=== PATIENT | female | born 1950 | race Caucasian/White ===

== ENCOUNTER → 2016-06-06 | Outpatient (CLI) | payer MEDICARE, OTHER ==
--- OUTSIDE RECORDS SUMMARY | 2016-05-31 05:40 | XMS REPORT | Continuity of Care Document ---
Author Author [facility] Organization [facility] Address Unknown Phone Unavailable Care Team Providers Care Senior Naval Parachutist Name Role Phone Pcn Unknown, Unknown PCP Unavailable Source Comments Some departments are not documenting in the electronic medical record. If you do not see the information that you expected, contact Release of Information in the Health Information Management department at [phone] for further assistance in locating additional records.[facility] Active Allergies and Adverse Reactions Allergen Noted Date Severity Reactions Comments Advair Diskus 04/02/2015 High HALLUCINATIONS, SEE Disorentation COMMENTS Ampicillin 04/02/2015 Medium HIVES Blueberry 04/02/2015 Medium HIVES Grass Pollen 04/02/2015 Low SEE COMMENTS Congestion Root Beer Flavor 04/02/2015 Medium HIVES Trees [place] 04/02/2015 Low SEE COMMENTS Congestion [place] Pollen 04/02/2015 Low SEE COMMENTS Congestion Current Medications Prescription Sig. Disp. Refills Start End Date Status Date metFORMIN (GLUCOPHAGE) Take 500 mg by mouth Active 500 mg tablet daily. pravastatin (PRAVACHOL) Take 80 mg by mouth Active 80 mg tablet daily. lisinopril (PRINIVIL; Take 10 mg by mouth Active ZESTRIL) 10 mg tablet daily. cetirizine (ZYRTEC) 10 mg Take 10 mg by mouth Active tablet daily. CALCIUM CARBONATE/VITAMIN Take by mouth daily. Active D3 (CALCIUM 500 + D PO) Cholecalciferol (Vitamin Take by mouth. Active D3) (VITAMIN D-3) 2,000 unit cap denosumab (PROLIA) 60 Inject 60 mg into area(s) Active mg/mL syrg as directed once. Once every 6 months estradiol(+) (VAGIFEM) 10 Insert or Apply 10 mcg to Active mcg vaginal tablet vaginal area twice weekly. Insert one tablet vaginally daily for two weeks; then insert one tablet twice weekly. METHYLPREDNISOLONE Take by mouth. One in Active (MEDROL PO) october-one in January-one in February diphenhydrAMINE Take 25 mg by mouth every Active (BENADRYL) 25 mg capsule 6 hours as needed (up to 8 tablets daily during allergy season). aspirin EC 81 mg tablet Take 81 mg by mouth Active daily. atorvastatin (LIPITOR) 40 Take 40 mg by mouth Active mg tablet daily. Active Problems Problem Noted Date Endometrial cancer (HCC) 07/20/2015 Social History Tobacco Use Types Packs/Day Years Used Date Never Smoker Smokeless Tobacco: Never Used Alcohol Use Drinks/Week oz/Week Comments No Last Filed Vital Signs Vital Sign Reading Time Taken Blood Pressure 137/63 07/19/2015 11:07 AM PERSONAL CARE SERVICE PROVIDER Pulse 77 07/19/2015 11:07 AM PERSONAL CARE SERVICE PROVIDER Temperature 36.8 C (98.2 F) 07/19/2015 11:07 AM PERSONAL CARE SERVICE PROVIDER Respiratory Rate 16 07/19/2015 11:07 AM PERSONAL CARE SERVICE PROVIDER Height 1.562 m (5' 1.5") 07/19/2015 11:07 AM PERSONAL CARE SERVICE PROVIDER Weight 64.683 kg (142 lb 9.6 oz) 07/19/2015 11:07 AM PERSONAL CARE SERVICE PROVIDER Body Mass Index 26.51 07/19/2015 11:07 AM PERSONAL CARE SERVICE PROVIDER Oxygen Saturation 99% 07/19/2015 11:07 AM PERSONAL CARE SERVICE PROVIDER Plan of Care Health Maintenance Due Date Last Done Comments Hepatitis C Screening 1950 Physical (Comprehensive) 1958 Exam Pertussis Vaccine 1962 Tetanus Vaccine 02/10/1968 Cervical Cancer Screening 02/10/1972 Breast Cancer Screening 1991 Colorectal Cancer 2001 Screening Shingles Vaccine 2011 Influenza Vaccine 02/03/2016 Results from Last 3 Months Not on file
[~2016-06-06] MED LIST: ALBU8.5H2; ATOR40TA70 PO; ATR20T; CIPR-225 PO; HYDR-3875 PO; HYDR-3876 PO; LISI10TA; METF-380; METF500T4 PO; NITR-65 PO; PARO10TA21; TAMS0.4C98 PO; ZLP5T PO; [UNRECOGNIZED DRUG - CODE] EXT
--- OUTSIDE RECORDS SUMMARY | 2016-06-06 12:51 | XMS REPORT | Continuity of Care Document ---
Author Author [facility] Organization [facility] Address Unknown Phone Unavailable Care Team Providers Care Hydramatic Mechanic Name Role Phone Pcn Unknown, Unknown PCP Unavailable Source Comments Some departments are not documenting in the electronic medical record. If you do not see the information that you expected, contact Release of Information in the Health Information Management department at [phone] for further assistance in locating additional records.[facility] Active Allergies and Adverse Reactions Allergen Noted Date Severity Reactions Comments Advair Diskus 04/02/2015 High HALLUCINATIONS, SEE Disorentation COMMENTS Ampicillin 04/02/2015 Medium HIVES Blueberry 04/02/2015 Medium HIVES Grass Pollen 04/02/2015 Low SEE COMMENTS Congestion Root Beer Flavor 04/02/2015 Medium HIVES Trees [place] 04/02/2015 Low SEE COMMENTS Congestion [place] Pollen 04/02/2015 Low SEE COMMENTS Congestion Current [...] Taken Blood Pressure 137/63 07/19/2015 11:07 AM GARBAGE MAN Pulse 77 07/19/2015 11:07 AM GARBAGE MAN Temperature 36.8 C (98.2 F) 07/19/2015 11:07 AM GARBAGE MAN Respiratory Rate 16 07/19/2015 11:07 AM GARBAGE MAN Height 1.562 m (5' 1.5") 07/19/2015 11:07 AM GARBAGE MAN Weight 64.683 kg (142 lb 9.6 oz) 07/19/2015 11:07 AM GARBAGE MAN Body Mass Index 26.51 07/19/2015 11:07 AM GARBAGE MAN Oxygen Saturation 99% 07/19/2015 11:07 AM GARBAGE MAN Plan of Care Health Maintenance Due Date Last Done Comments Hepatitis C Screening 1950 Physical (Comprehensive) 1958 Exam Pertussis Vaccine 1962 Tetanus Vaccine 02/10/1968 Cervical Cancer Screening 02/10/1972 Breast Cancer Screening 1991 Colorectal Cancer 2001 Screening Shingles Vaccine 2011 Influenza Vaccine 02/03/2016 Results from Last 3 Months Not on file
== END ==
LOC: PREOP 05-31 05:37
PROVIDERS: ATTEND Urology
DX: Z01.818 Encounter for other preprocedural examination (principal); N20.1 Calculus of ureter

== ENCOUNTER → 2016-06-09 | Outpatient (CLI) | payer MEDICARE, OTHER ==
--- OUTSIDE RECORDS SUMMARY | 2016-06-09 09:20 | XMS REPORT | Continuity of Care Document ---
Author Author [facility] Organization [facility] Address Unknown Phone Unavailable Care Team Providers Care Pourer Buggy Ladle Name Role Phone Pcn Unknown, Unknown PCP Unavailable Source Comments Some departments are not documenting in the electronic medical record. If you do not see the information that you expected, contact Release of Information in the Health Information Management department at [phone] for further assistance in locating additional records.[facility] Active Allergies and Adverse Reactions Allergen Noted Date Severity Reactions Comments Advair Diskus 04/02/2015 High HALLUCINATIONS, SEE Disorentation COMMENTS Ampicillin 04/02/2015 Medium HIVES Blueberry 04/02/2015 Medium HIVES Grass Pollen 04/02/2015 Low SEE COMMENTS Congestion Root Beer Flavor 04/02/2015 Medium HIVES Trees [place] 04/02/2015 Low SEE COMMENTS Congestion [place] Pollen 04/02/2015 Low SEE COMMENTS Congestion Current [...] Taken Blood Pressure 137/63 07/19/2015 11:07 AM PACKING MACHINE CAN FEEDER Pulse 77 07/19/2015 11:07 AM PACKING MACHINE CAN FEEDER Temperature 36.8 C (98.2 F) 07/19/2015 11:07 AM PACKING MACHINE CAN FEEDER Respiratory Rate 16 07/19/2015 11:07 AM PACKING MACHINE CAN FEEDER Height 1.562 m (5' 1.5") 07/19/2015 11:07 AM PACKING MACHINE CAN FEEDER Weight 64.683 kg (142 lb 9.6 oz) 07/19/2015 11:07 AM PACKING MACHINE CAN FEEDER Body Mass Index 26.51 07/19/2015 11:07 AM PACKING MACHINE CAN FEEDER Oxygen Saturation 99% 07/19/2015 11:07 AM PACKING MACHINE CAN FEEDER Plan of Care Health Maintenance Due Date Last Done Comments Hepatitis C Screening 1950 Physical (Comprehensive) 1958 Exam Pertussis Vaccine 1962 Tetanus Vaccine 02/10/1968 Cervical Cancer Screening 02/10/1972 Breast Cancer Screening 1991 Colorectal Cancer 2001 Screening Shingles Vaccine 2011 Influenza Vaccine 02/03/2016 Results from Last 3 Months Not on file
--- NOTE | 2016-06-09 14:43 | Diagnostic Imaging Report ---
KUB. COMPARISON: 05/23/2016. FINDINGS: There is a left ureteric stent in place. Surgical clips are seen in the pelvis bilaterally and in the upper right abdomen. There are stone fragments seen in the midureter along the stent around L5 level. This involves a length of about 3.5 cm that has stone fragments. There are also stones in the lower pole of the left kidney up to 9 mm. Other calcifications in the pelvis are likely phleboliths. No definite right kidney calcifications. IMPRESSION: Left kidney stones and stone fragments in the mid left ureter adjacent to the ureteric stent. Dictated by: Dictated on workstation # [id number]
== END ==
LOC: RAD 09:17
PROVIDERS: ATTEND Urology
DX: N20.1 Calculus of ureter (principal); Z98.890 Other specified postprocedural states
CPT/HCPCS: 74000

== ENCOUNTER 2016-06-16 05:37 | Outpatient (CLI) | payer MEDICARE, OTHER ==
[~2016-06-16] VITALS: Ht 154.9 cm; Wt 59.9 kg
[~2016-06-16 05:37] MED LIST changes: -CIPR-225 PO; -HYDR-3876 PO
--- OUTSIDE RECORDS SUMMARY | 2016-06-16 05:39 | XMS REPORT | Continuity of Care Document ---
Author Author [facility] Organization [facility] Address Unknown Phone Unavailable Care Team Providers Care Life Skills Instructor Name Role Phone Pcn Unknown, Unknown PCP Unavailable Source Comments Some departments are not documenting in the electronic medical record. If you do not see the information that you expected, contact Release of Information in the Health Information Management department at [phone] for further assistance in locating additional records.[facility] Active Allergies and Adverse Reactions Allergen Noted Date Severity Reactions Comments Advair Diskus 04/02/2015 High HALLUCINATIONS, SEE Disorentation COMMENTS Ampicillin 04/02/2015 Medium HIVES Blueberry 04/02/2015 Medium HIVES Grass Pollen 04/02/2015 Low SEE COMMENTS Congestion Root Beer Flavor 04/02/2015 Medium HIVES Trees [place] 04/02/2015 Low SEE COMMENTS Congestion [place] Pollen 04/02/2015 Low SEE COMMENTS Congestion Current [...] Taken Blood Pressure 137/63 07/19/2015 11:07 AM TOY ELECTRIC TRAIN REPAIRER Pulse 77 07/19/2015 11:07 AM TOY ELECTRIC TRAIN REPAIRER Temperature 36.8 C (98.2 F) 07/19/2015 11:07 AM TOY ELECTRIC TRAIN REPAIRER Respiratory Rate 16 07/19/2015 11:07 AM TOY ELECTRIC TRAIN REPAIRER Height 1.562 m (5' 1.5") 07/19/2015 11:07 AM TOY ELECTRIC TRAIN REPAIRER Weight 64.683 kg (142 lb 9.6 oz) 07/19/2015 11:07 AM TOY ELECTRIC TRAIN REPAIRER Body Mass Index 26.51 07/19/2015 11:07 AM TOY ELECTRIC TRAIN REPAIRER Oxygen Saturation 99% 07/19/2015 11:07 AM TOY ELECTRIC TRAIN REPAIRER Plan of Care Health Maintenance Due Date Last Done Comments Hepatitis C Screening 1950 Physical (Comprehensive) 1958 Exam Pertussis Vaccine 1962 Tetanus Vaccine 02/10/1968 Cervical Cancer Screening 02/10/1972 Breast Cancer Screening 1991 Colorectal Cancer 2001 Screening Shingles Vaccine 2011 Influenza Vaccine 02/03/2016 Results from Last 3 Months Not on file
[2016-06-16] MEDS ORDERED: CIPR-225 PO (10:37)
== END 2016-06-16 10:41 ==
LOC: PREOP 05:37
PROVIDERS: ATTEND Urology
DX: Z01.818 Encounter for other preprocedural examination (principal); N20.1 Calculus of ureter

== ENCOUNTER 2016-06-20 08:49 | Day surgery (SDC) | payer MEDICARE, OTHER ==
[~2016-06-20] VITALS: Ht 154.9 cm; Wt 59.9 kg
[~2016-06-20 08:49] MED LIST changes: +CIPR-225 PO
--- OUTSIDE RECORDS SUMMARY | 2016-06-20 08:52 | XMS REPORT | Continuity of Care Document ---
Author Author [facility] Organization [facility] Address Unknown Phone Unavailable Care Team Providers Care Transfer Professor Name Role Phone Pcn Unknown, Unknown PCP Unavailable Source Comments Some departments are not documenting in the electronic medical record. If you do not see the information that you expected, contact Release of Information in the Health Information Management department at [phone] for further assistance in locating additional records.[facility] Active Allergies and Adverse Reactions Allergen Noted Date Severity Reactions Comments Advair Diskus 04/02/2015 High HALLUCINATIONS, SEE Disorentation COMMENTS Ampicillin 04/02/2015 Medium HIVES Blueberry 04/02/2015 Medium HIVES Grass Pollen 04/02/2015 Low SEE COMMENTS Congestion Root Beer Flavor 04/02/2015 Medium HIVES Trees [place] 04/02/2015 Low SEE COMMENTS Congestion [place] Pollen 04/02/2015 Low SEE COMMENTS Congestion Current [...] Taken Blood Pressure 137/63 07/19/2015 11:07 AM RESIDENTIAL REAL ESTATE APPRAISER Pulse 77 07/19/2015 11:07 AM RESIDENTIAL REAL ESTATE APPRAISER Temperature 36.8 C (98.2 F) 07/19/2015 11:07 AM RESIDENTIAL REAL ESTATE APPRAISER Respiratory Rate 16 07/19/2015 11:07 AM RESIDENTIAL REAL ESTATE APPRAISER Height 1.562 m (5' 1.5") 07/19/2015 11:07 AM RESIDENTIAL REAL ESTATE APPRAISER Weight 64.683 kg (142 lb 9.6 oz) 07/19/2015 11:07 AM RESIDENTIAL REAL ESTATE APPRAISER Body Mass Index 26.51 07/19/2015 11:07 AM RESIDENTIAL REAL ESTATE APPRAISER Oxygen Saturation 99% 07/19/2015 11:07 AM RESIDENTIAL REAL ESTATE APPRAISER Plan of Care Health Maintenance Due Date Last Done Comments Hepatitis C Screening 1950 Physical (Comprehensive) 1958 Exam Pertussis Vaccine 1962 Tetanus Vaccine 02/10/1968 Cervical Cancer Screening 02/10/1972 Breast Cancer Screening 1991 Colorectal Cancer 2001 Screening Shingles Vaccine 2011 Influenza Vaccine 02/03/2016 Results from Last 3 Months Not on file
--- OUTSIDE RECORDS SUMMARY | 2016-06-20 08:52 | XMS REPORT | Continuity of Care Document ---
Author Author [facility] Organization [facility] Address Unknown Phone Unavailable Care Team Providers Care Spring Repairer Helper Hand Name Role Phone Pcn Unknown, Unknown PCP Unavailable Source Comments Some departments are not documenting in the electronic medical record. If you do not see the information that you expected, contact Release of Information in the Health Information Management department at [phone] for further assistance in locating additional records.[facility] Active Allergies and Adverse Reactions Allergen Noted Date Severity Reactions Comments Advair Diskus 04/02/2015 High HALLUCINATIONS, SEE Disorentation COMMENTS Ampicillin 04/02/2015 Medium HIVES Blueberry 04/02/2015 Medium HIVES Grass Pollen 04/02/2015 Low SEE COMMENTS Congestion Root Beer Flavor 04/02/2015 Medium HIVES Trees [place] 04/02/2015 Low SEE COMMENTS Congestion [place] Pollen 04/02/2015 Low SEE COMMENTS Congestion Current [...] Taken Blood Pressure 137/63 07/19/2015 11:07 AM CAREER AGENT Pulse 77 07/19/2015 11:07 AM CAREER AGENT Temperature 36.8 C (98.2 F) 07/19/2015 11:07 AM CAREER AGENT Respiratory Rate 16 07/19/2015 11:07 AM CAREER AGENT Height 1.562 m (5' 1.5") 07/19/2015 11:07 AM CAREER AGENT Weight 64.683 kg (142 lb 9.6 oz) 07/19/2015 11:07 AM CAREER AGENT Body Mass Index 26.51 07/19/2015 11:07 AM CAREER AGENT Oxygen Saturation 99% 07/19/2015 11:07 AM CAREER AGENT Plan of Care Health Maintenance Due Date Last Done Comments Hepatitis C Screening 1950 Physical (Comprehensive) 1958 Exam Pertussis Vaccine 1962 Tetanus Vaccine 02/10/1968 Cervical Cancer Screening 02/10/1972 Breast Cancer Screening 1991 Colorectal Cancer 2001 Screening Shingles Vaccine 2011 Influenza Vaccine 02/03/2016 Results from Last 3 Months Not on file
[2016-06-20 08:55] VITALS: BP 115/74
--- NOTE | 2016-06-20 09:27 | Progress Note-Pre Operative ---
Pre-Operative Progress Note H&P Reviewed The H&P was reviewed, patient examined and no changes noted. Date H&P Reviewed: Jun 20, 2016 Time H&P Reviewed: 09:26 Pre-Operative Diagnosis: Lt renal stones ALYCIA HOWARD MD Jun 20, 2016 9:26 am
[2016-06-20] MEDS ORDERED: LACTATED RINGERS 1,000 ML IV PRN (09:42)
[2016-06-20] MEDS ORDERED: ONDANSETRON 4 MG/2 ML (SDV) Z0FRAN IV ONE (09:45)
[2016-06-20] MEDS ORDERED: SCOPOLAMINE 1.5 MG (TRANSDERM-SCOP) PATCH TOP ONE (09:45)
[2016-06-20] MEDS ORDERED: FAMOTIDINE 20MG/2ML IV (PEPCID) IV ONE (09:45)
--- NOTE | 2016-06-20 09:50 | Diagnostic Imaging Report ---
EXAMINATION: KUB. COMPARISON: 06/09/2016. INDICATION: Left sided stones. FINDINGS: There has been interval passage of some stone fragments along the mid ureter at the L5 level with the remaining stone fragment measuring 9 mm. There are multiple stone fragments seen in the mid and lower pole of the left kidney measuring up to 5 mm in size. The ureteric stent on the left appears in good position. No definite right-sided stone. Pelvic calcifications are likely phleboliths. Surgical clips are noted bilaterally. Prominent vascular calcifications are also seen in the pelvis. There are surgical clips in the upper right abdomen. There is a moderate amount of fecal material seen. IMPRESSION: There are stones in the lower pole of the left kidney and a 9 mm stone along the left ureteric stent at the L5 level. Dictated by: Dictated on workstation # [id number]
[2016-06-20] MEDS ORDERED: CATHETER FLUSH 10 ML SYR IV PRN (10:00)
[2016-06-20] MEDS ORDERED: LEVOFLOXACIN 250 MG/D5W 50 ML (PRE-MIX) IV ONE (10:00)
[2016-06-20] MEDS ORDERED: FUROSEMIDE 40 MG/4 ML INJ (LASIX) ONE (10:15)
[2016-06-20] MEDS ORDERED: LACTATED RINGERS 1,000 ML IV ONE (10:15)
[2016-06-20] MEDS ORDERED: proPOfol 200 MG/20 ML (DIPRIVAN) VIAL IV ONE (10:15)
[2016-06-20] MEDS ORDERED: KETOROLAC 30 MG/ML VIAL ONE (10:15)
[2016-06-20] MEDS ORDERED: ONDANSETRON 4 MG/2 ML (SDV) Z0FRAN ONE (10:15)
[2016-06-20] MEDS ORDERED: LIDOCAINE PF 2% 10 ML (XYLOCAINE) AMP ONE (10:15)
[2016-06-20] MEDS ORDERED: SEVOFLURANE (ULTANE) 15 ML INHAL SOLN ONE (10:15)
[2016-06-20] MEDS ORDERED: fentaNYL INJECTION 100 MCG/2 ML AMP ONE (10:16)
[2016-06-20] MEDS ORDERED: MIDAZOLAM 2 MG/2 ML (VERSED) VIAL ONE (10:16)
--- NOTE | 2016-06-20 10:38 | Progress Note-Post Operative ---
Post-Operative Progess Note Pre-Operative Diagnosis Lt renal stones Post-Operative Diagnosis same Post-Op Procedure Note Date of Procedure: Jun 20, 2016 Name of Procedure: Lt ESWL and cysto with DC stent Anesthesia Type general ANITAALYCIA Zuniga MD Jun 20, 2016 10:38 am
--- NOTE | 2016-06-20 10:39 | Discharge Inst-Urology ---
Discharge Inst-Urology Discharge Medications New, Converted, or Re-newed RX: RX on Chart Patient Instructions/Follow Up Plan Please make appointment to been seen in office in 3 weeks. KUB prior to it KUB on way home Post ESWL instructions Increase oral fluids for 48 hours and then as needed. Diet and Activity as tolerated. If questions or concerns contact your physician Or seek help at emergency department. ALYCIA HOWARD MD Jun 20, 2016 10:39 am
[2016-06-20] MEDS ORDERED: morphine INJ 10 MG/ML 1ML (SYR OR VIAL) IV PRN (11:15)
[2016-06-20] MEDS ORDERED: fentaNYL INJECTION 250 MCG/5 ML AMP IV PRN (11:15)
[2016-06-20] MEDS ORDERED: PROMETHAZINE INJ 25 MG/ML (PHENERGAN) AMP IV PRN (11:15)
[2016-06-20] MEDS ORDERED: ONDANSETRON 4 MG/2 ML (SDV) Z0FRAN IV PRN (11:15)
[2016-06-20 12:00] VITALS: BP 117/66
[2016-06-20 12:30] VITALS: BP 120/63
[2016-06-20] MEDS ORDERED: NITR-65 PO (12:55)
[2016-06-20] MEDS ORDERED: HYDR-3876 PO (12:55)
[2016-06-20] MEDS ORDERED: TAMS0.4C98 PO (12:55)
[2016-06-20 13:00] VITALS: BP 117/59
--- NOTE | 2016-06-20 13:06 | OPERATIVE REPORT ---
PROCEDURE PHYSICIAN: ALYCIA HOWARD DATE OF PROCEDURE: 06/20/2016 PREOPERATIVE: Left renal stone. POSTOPERATIVE DIAGNOSIS: Left renal stone. OPERATION: Left ESWL with cystoscopy and removal of left double J stent. SURGEON: Ruthy ANESTHESIA: General. COMPLICATIONS: None. PROCEDURE: With the patient in supine under satisfactory general anesthesia on the ESWL table, we localized first the group of stones superiorly. Delivered 1250 shocks at KV of 5 with complete disappearance of the fragments. Similarly, the lower fragments were dealt and same amount and same results. During the procedure, the patient was put in a semi-frog position. The genitalia were prepped and draped in usual sterile fashion. Flexible cystoscope was introduced in the bladder. The distal end of the stent was visualized, grasped with grasping forceps and removed. The patient received 40 mg of Lasix and 30 mg of Toradol IV at the end of the procedure. She tolerated the procedure and anesthesia well and was sent to recovery room in stable condition. Job ID: [id number] Dictated Date: 06/20/2016 10:51:45 Machine Heel Seat Laster Date: 06/20/2016 13:02:29 / susu
--- NOTE | 2016-06-20 13:09 | Diagnostic Imaging Report ---
KUB. INDICATION: Post lithotripsy. COMPARISON: 06/20/2016. Preoperative radiographs. FINDINGS: There is interval removal of a left ureteric stent. Again seen are multiple stone fragments in the left kidney up to 8 mm in size. There are stone fragments noted within the distal 2 cm of the left ureter up to 1 mm in size. The previously seen left ureteric stone at L5 level is not visualized. Surgical clips in the pelvis and in the upper right abdomen again seen. Moderate amount of fecal matter in the colon mostly on the right side noted. IMPRESSION: 1. Tiny stone fragments up to 1 mm in size are seen within the distal 2 cm of the left ureter. 2. Multiple stones and stone fragments in the left kidney up to 8 mm in size. Dictated by: Dictated on workstation # [id number]
[2016-06-20 13:30] VITALS: BP 117/59
== END 2016-06-20 13:30 | disposition home or self-care (01) ==
LOC: SDC 08:49
PROVIDERS: ATTEND Urology
DX: N20.0 Calculus of kidney (principal); E11.9 Type 2 diabetes mellitus without complications; E78.00 Pure hypercholesterolemia, unspecified; Z11.2 Encounter for screening for other bacterial diseases
CPT/HCPCS: 74000; 82962; 87081

== ENCOUNTER → 2016-07-10 | Outpatient (CLI) | payer MEDICARE, OTHER ==
[~2016-07-10] MED LIST changes: +HYDR-3876 PO
--- OUTSIDE RECORDS SUMMARY | 2016-07-10 11:06 | XMS REPORT | Continuity of Care Document ---
Author Author [facility] Organization [facility] Address Unknown Phone Unavailable Care Team Providers Care Medical Office Receptionist Name Role Phone Pcn Unknown, Unknown PCP Unavailable Source Comments Some departments are not documenting in the electronic medical record. If you do not see the information that you expected, contact Release of Information in the Health Information Management department at [phone] for further assistance in locating additional records.[facility] Active Allergies and Adverse Reactions Allergen Noted Date Severity Reactions Comments Advair Diskus 04/02/2015 High HALLUCINATIONS, SEE Disorentation COMMENTS Ampicillin 04/02/2015 Medium HIVES Blueberry 04/02/2015 Medium HIVES Grass Pollen 04/02/2015 Low SEE COMMENTS Congestion Root Beer Flavor 04/02/2015 Medium HIVES Trees [place] 04/02/2015 Low SEE COMMENTS Congestion [place] Pollen 04/02/2015 Low SEE COMMENTS Congestion Current [...] Taken Blood Pressure 137/63 07/19/2015 11:07 AM LEAD TRAINER Pulse 77 07/19/2015 11:07 AM LEAD TRAINER Temperature 36.8 C (98.2 F) 07/19/2015 11:07 AM LEAD TRAINER Respiratory Rate 16 07/19/2015 11:07 AM LEAD TRAINER Height 1.562 m (5' 1.5") 07/19/2015 11:07 AM LEAD TRAINER Weight 64.683 kg (142 lb 9.6 oz) 07/19/2015 11:07 AM LEAD TRAINER Body Mass Index 26.51 07/19/2015 11:07 AM LEAD TRAINER Oxygen Saturation 99% 07/19/2015 11:07 AM LEAD TRAINER Plan of Care Health Maintenance Due Date Last Done Comments Hepatitis C Screening 1950 Physical (Comprehensive) 1958 Exam Pertussis Vaccine 1962 Tetanus Vaccine 02/10/1968 Cervical Cancer Screening 02/10/1972 Breast Cancer Screening 1991 Colorectal Cancer 2001 Screening Shingles Vaccine 2011 Influenza Vaccine 02/03/2016 Results from Last 3 Months Not on file
--- NOTE | 2016-07-10 11:26 | Diagnostic Imaging Report ---
INDICATION: Nephrolithiasis. EXAMINATION: KUB at 11:24 AM. FINDINGS: There are surgical sivakumar lining the pelvis and in the right upper quadrant of the abdomen. There is stool in the colon. There are no radiopaque calculi seen in either kidney. IMPRESSION: There are no calculi seen in the kidneys. Dictated by: Dictated on workstation # [id number]
== END ==
LOC: RAD 11:00
PROVIDERS: ATTEND Urology
DX: N20.0 Calculus of kidney (principal); Z98.890 Other specified postprocedural states
CPT/HCPCS: 74000

== ENCOUNTER → 2016-08-29 | Outpatient (CLI) | payer MEDICARE, OTHER ==
[~2016-08-29] MED LIST changes: +DENOSUMAB 60 MG/1 ML (PROLIA) CANCER CTR SQ SCH
== END ==
LOC: FS 08-28 15:24
PROVIDERS: ATTEND Internal Medicine Hematology & Oncology
DX: Z08 Encounter for follow-up examination after completed treatment for malignant neoplasm (principal); Z85.41 Personal history of malignant neoplasm of cervix uteri; M81.0 Age-related osteoporosis without current pathological fracture; E11.9 Type 2 diabetes mellitus without complications; I10 Essential (primary) hypertension; E78.5 Hyperlipidemia, unspecified; Z79.899 Other long term (current) drug therapy
CPT/HCPCS: 96372; 99213

== ENCOUNTER 2017-03-02 11:09 | Outpatient (RCR) | payer MEDICARE, OTHER ==
[2017-03-02] MEDS ORDERED: DENOSUMAB 60 MG/1 ML (PROLIA) CANCER CTR SQ SCH (11:30)
== END 2017-03-03 | disposition home or self-care (01) ==
LOC: ONC 11:09
PROVIDERS: ATTEND Internal Medicine Hematology & Oncology
DX: M81.0 Age-related osteoporosis without current pathological fracture (principal); Z08 Encounter for follow-up examination after completed treatment for malignant neoplasm; Z85.41 Personal history of malignant neoplasm of cervix uteri; E11.9 Type 2 diabetes mellitus without complications; I10 Essential (primary) hypertension; E78.5 Hyperlipidemia, unspecified; Z79.899 Other long term (current) drug therapy
CPT/HCPCS: 96372

== ENCOUNTER → 2017-03-02 | Outpatient (CLI) | payer MEDICARE, OTHER ==
[~2017-03-02] MED LIST changes: -DENOSUMAB 60 MG/1 ML (PROLIA) CANCER CTR SQ SCH
== END ==
LOC: RAD 10:15
PROVIDERS: ATTEND Obstetrics & Gynecology
DX: Z12.31 Encounter for screening mammogram for malignant neoplasm of breast (principal)
CPT/HCPCS: 77067

== ENCOUNTER → 2017-09-13 | Outpatient (CLI) | payer MEDICARE, OTHER ==
--- NOTE | 2017-09-13 09:50 | Diagnostic Imaging Report ---
Indication: Postmenopausal. Comparison: Made with prior study from 02/11/2015. Findings: Bone mineral analysis of the lumbar spine and both hips was performed. The bone mineral density of the lumbar spine L2-L4 is 0.862 with a T score of -2.8. This compares with prior measurements of 0.810 and -3.2. The bone mineral density of the left femoral neck is 0.781 with a T score of -1.8. This compares with 0.824 and -1.5. The bone mineral density of the right femoral neck is 0.801 with a T score of -1.7. This compares with 0.838 and -1.4. 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 Dictated by: Dictated on workstation # [id number]
== END ==
LOC: RAD 08:45
PROVIDERS: ATTEND Internal Medicine Hematology & Oncology
DX: M81.0 Age-related osteoporosis without current pathological fracture (principal); M85.851 Other specified disorders of bone density and structure, right thigh; M85.852 Other specified disorders of bone density and structure, left thigh; Z78.0 Asymptomatic menopausal state
CPT/HCPCS: 77080

== ENCOUNTER 2018-03-01 10:06 | Outpatient (RCR) | payer MEDICARE, OTHER ==
[~2018-03-01 10:06] MED LIST changes: +METF-397 PO; -METF500T4 PO
[2018-03-01] MEDS ORDERED: DENOSUMAB 60 MG/1 ML (PROLIA) CANCER CTR SQ SCH (10:14)
== END 2018-03-03 | disposition home or self-care (01) ==
LOC: ONC 10:06
PROVIDERS: ATTEND Internal Medicine Hematology & Oncology
DX: Z08 Encounter for follow-up examination after completed treatment for malignant neoplasm (principal); Z85.41 Personal history of malignant neoplasm of cervix uteri; M81.0 Age-related osteoporosis without current pathological fracture; Z92.3 Personal history of irradiation; Z92.21 Personal history of antineoplastic chemotherapy; N93.8 Other specified abnormal uterine and vaginal bleeding; K62.5 Hemorrhage of anus and rectum; N18.3 Chronic kidney disease, stage 3 (moderate); Z87.442 Personal history of urinary calculi; Z79.899 Other long term (current) drug therapy
CPT/HCPCS: 96372

== ENCOUNTER → 2018-04-16 | Outpatient (CLI) | payer MEDICARE, OTHER ==
--- NOTE | 2018-04-16 14:13 | Diagnostic Imaging Report ---
INDICATION: Routine screening. COMPARISON: 03/02/2017 and 02/21/2016. TECHNIQUE: 2D and 3D bilateral screening mammography was performed with CAD. FINDINGS: Both breasts are heterogeneously dense, limiting the sensitivity of mammography. The parenchymal pattern is stable. No mass or malignant appearing microcalcifications are seen. The axillae are unremarkable. IMPRESSION: No mammographic features suspicious for malignancy are identified. ACR BI-RADS Category 1: Negative. Result letter will be mailed to the patient. Note: At least 10% of breast cancer is not imaged by mammography. Dictated by: Dictated on workstation # [id number]
== END ==
LOC: RAD 10:45
PROVIDERS: ATTEND Obstetrics & Gynecology
DX: Z12.31 Encounter for screening mammogram for malignant neoplasm of breast (principal)
CPT/HCPCS: 77067

== ENCOUNTER → 2018-09-03 | Outpatient (CLI) | payer MEDICARE, OTHER ==
[~2018-09-03] MED LIST changes: +DENOSUMAB 60 MG/1 ML (PROLIA) CANCER CTR SQ SCH
== END ==
LOC: EDSTATUS 03-04 08:53 → ONC 08:54
PROVIDERS: ATTEND Internal Medicine Hematology & Oncology
DX: Z08 Encounter for follow-up examination after completed treatment for malignant neoplasm (principal); Z85.41 Personal history of malignant neoplasm of cervix uteri; M81.0 Age-related osteoporosis without current pathological fracture; N93.8 Other specified abnormal uterine and vaginal bleeding; K62.5 Hemorrhage of anus and rectum; N18.3 Chronic kidney disease, stage 3 (moderate); Z87.442 Personal history of urinary calculi; Z79.899 Other long term (current) drug therapy; Z92.21 Personal history of antineoplastic chemotherapy; Z92.3 Personal history of irradiation
CPT/HCPCS: 96372

== ENCOUNTER → 2019-03-11 | Outpatient (CLI) | payer MEDICARE, OTHER | LOC: ONC 10:33 | PROVIDERS: ATTEND Internal Medicine Hematology & Oncology | DX: C54.1 Malignant neoplasm of endometrium (principal); M81.0 Age-related osteoporosis without current pathological fracture | CPT/HCPCS: 96372 ==

== ENCOUNTER → 2019-04-18 | Outpatient (CLI) | payer MEDICARE, OTHER ==
[~2019-04-18] MED LIST changes: -DENOSUMAB 60 MG/1 ML (PROLIA) CANCER CTR SQ SCH
--- NOTE | 2019-04-18 10:39 | Diagnostic Imaging Report ---
INDICATION: Routine screening. Comparison is made with prior mammogram from 04/16/2018 and 03/02/2017. 2-D and 3-D bilateral screening mammography was performed with CAD. Scattered fibroglandular densities are identified bilaterally. The parenchymal pattern is stable. No mass or malignant appearing microcalcifications are seen. Axillae are unremarkable. IMPRESSION: BI-RADS Category 1 No mammographic features suspicious for malignancy are identified. ACR BI-RADS Category 1: Negative. Result letter will be mailed to the patient. Note: At least 10% of breast cancer is not imaged by mammography. Dictated by: Dictated on workstation # [id number]
== END ==
LOC: RAD 08:53
PROVIDERS: ATTEND Obstetrics & Gynecology
DX: Z12.31 Encounter for screening mammogram for malignant neoplasm of breast (principal)
CPT/HCPCS: 77067

== ENCOUNTER → 2019-10-14 | Outpatient (CLI) | payer MEDICARE, OTHER ==
[~2019-10-14] MED LIST changes: -TAMS0.4C98 PO; +TMSL.4C PO
--- NOTE | 2019-10-16 10:53 | Diagnostic Imaging Report ---
INDICATION: 69-year-old postmenopausal female. COMPARISON: 09/13/2017. FINDINGS: AP Spine L1-L4: [BMD (g/cm2): 0.896] [T-Score: -2.5] [Z-Score: -0.8] [BMD Previous: 0.862] [BMD % Change: 3.9] LT Hip Neck: [BMD (g/cm2): 0.801] [T-Score: -1.7] [Z-Score: 0.0] LT Hip Total: [BMD (g/cm2):0.934] [T-Score:-0.6] [Z-Score: 0.9] [BMD Previous: 0.925] [BMD % Change: 1.0] RT Hip Neck: [BMD (g/cm2):0.823] [T-Score:-1.5] [Z-Score:0.2] RT Hip Total: [BMD (g/cm2):0.972] [T-score:-0.3] [Z-Score:1.2] [BMD Previous:0.967] [BMD % Change:0.5] *Indicates significant change from prior examination based on 95% confidence level. World Health Organization criteria for BMD interpretation classify patients as Normal (T-score at or above -1.0), Osteopenic (T-score between -1.0 and -2.5) or Osteoporotic (T-score at or below -2.5). LIMITATIONS AND MODIFICATION: None. IMPRESSION: 1. Osteoporosis. 2. No significant change in bone mineral density since prior examination. 3. See below National Osteoporosis Foundation guidelines on when to potentially initiate pharmacologic therapy. Based on the National Osteoporosis Foundation Guidelines, pharmacologic treatment should be initiated in any of the following, unless clinical conditions suggest otherwise: * Any patient with prior fragility fracture of the hip or vertebrae. A spine fracture indicates 5X risk for subsequent spine fracture and 2X risk for subsequent hip fracture. * Osteoporosis (T-score <-2.5). * Postmenopausal women and men age 50 and older with low bone mass/osteopenia (T-score between -1.0 and -2.5) by DXA and 10-year major osteoporotic fracture greater than 20% or a 10-year probability of hip fracture greater than 3%. These fracture risks are supplied above in the FRAX score, if applicable. * Clinician judgement and/or patient preferences may indicate treatment for people with 10-year fracture probabilities above or below these levels. Dictated by: Dictated on workstation # [id number]
== END ==
LOC: RAD 11:19
PROVIDERS: ATTEND Internal Medicine Hematology & Oncology
DX: M81.0 Age-related osteoporosis without current pathological fracture (principal); Z78.0 Asymptomatic menopausal state; Z85.42 Personal history of malignant neoplasm of other parts of uterus
CPT/HCPCS: 77080

== ENCOUNTER → 2019-11-03 | Outpatient (CLI) | payer MEDICARE, OTHER ==
[2019-11-03 10:08] LABS: BILIRUBIN,TOTAL 0.3 MG/DL (0.1-1.0); CALCIUM 9.8 MG/DL (8.5-10.1); CREATININE SERUM 1.25 MG/DL (0.60-1.30); POTASSIUM 3.8 MMOL/L (3.6-5.0)
[2019-11-03 10:09] LABS: TOTAL PROTEIN 7.3 GM/DL (6.4-8.2)
== END ==
LOC: LAB FS 08:34
PROVIDERS: ATTEND Family Medicine
DX: E11.9 Type 2 diabetes mellitus without complications (principal)
CPT/HCPCS: 80053; 80061; 83036

== ENCOUNTER → 2019-11-03 | Outpatient (CLI) | payer MEDICARE, OTHER ==
[2019-11-03 09:33] LABS: HEMATOCRIT 39 % (35-52); HEMOGLOBIN 12.3 G/DL (11.5-16.0); MEAN CORPUSCULAR HEMOGLOBIN 30 PG (25-34); MEAN CORPUSCULAR HGB CONC 32 G/DL (32-36); MEAN CORPUSCULAR VOLUME 93 FL (80-99); MEAN PLATELET VOLUME 12.7 FL (7.4-10.4); PLATELET COUNT 196 10^3/uL (130-400); RED CELL DISTRIBUTION WIDTH 14.4 % (10.0-14.5); WHITE BLOOD COUNT 7.7 10^3/uL (4.3-11.0)
[2019-11-03 09:34] LABS: BASOPHILS # (AUTO) 0.1 10^3/uL (0.0-0.1); BASOPHILS % (AUTO) 1 % (0-10); EOSINOPHILS # (AUTO) 0.7 10^3/uL (0.0-0.3); EOSINOPHILS % (AUTO) 9 % (0-10); LYMPHOCYTES # (AUTO) 1.7 X 10^3 (1.0-4.0); LYMPHOCYTES % (AUTO) 22 % (12-44); MONOCYTES # (AUTO) 0.7 X 10^3 (0.0-1.0); MONOCYTES % (AUTO) 9 % (0-12); NEUTROPHILS # (AUTO) 4.5 X 10^3 (1.8-7.8); NEUTROPHILS % (AUTO) 59 % (42-75)
[2019-11-03 10:09] LABS: POTASSIUM 3.8 MMOL/L (3.6-5.0)
[2019-11-03 10:10] LABS: BILIRUBIN,TOTAL 0.3 MG/DL (0.1-1.0); CALCIUM 9.8 MG/DL (8.5-10.1); CREATININE SERUM 1.25 MG/DL (0.60-1.30); TOTAL PROTEIN 7.3 GM/DL (6.4-8.2)
== END ==
LOC: LAB FS 08:38
PROVIDERS: ATTEND Internal Medicine Hematology & Oncology
DX: C54.1 Malignant neoplasm of endometrium (principal)
CPT/HCPCS: 36415; 80053; 85025; 86304

== ENCOUNTER → 2019-11-17 | Outpatient (CLI) | payer MEDICARE, OTHER ==
[~2019-11-17] MED LIST changes: +DENOSUMAB 60 MG/1 ML (PROLIA) CANCER CTR SQ SCH
== END ==
LOC: ONC 08:46
PROVIDERS: ATTEND Internal Medicine Hematology & Oncology
DX: C54.1 Malignant neoplasm of endometrium (principal); M81.0 Age-related osteoporosis without current pathological fracture
CPT/HCPCS: 96372; G0463 ×2; 99213

== ENCOUNTER → 2019-12-18 | Outpatient (CLI) | payer MEDICARE, OTHER ==
[~2019-12-18] MED LIST changes: -DENOSUMAB 60 MG/1 ML (PROLIA) CANCER CTR SQ SCH
--- NOTE | 2019-12-18 10:51 | Diagnostic Imaging Report ---
INDICATION: COUGH COMPARISON: 05/10/2009. FINDINGS: Frontal and lateral views of the chest demonstrate normal heart size and pulmonary vascularity. The lungs are clear. There are no signs of infiltrate, pleural effusions or pneumothoraces. The visualized osseous structures show no acute abnormalities. IMPRESSION: 1. No acute process. No signs of infiltrates, effusions or pneumothoraces. Dictated by: Dictated on workstation # [id number]
== END ==
LOC: RAD FS 09:50
PROVIDERS: ATTEND Family Medicine
DX: R05 Cough (principal)
CPT/HCPCS: 71046

== ENCOUNTER → 2020-05-06 | Outpatient (CLI) | payer MEDICARE, OTHER ==
[~2020-05-06] MED LIST changes: -HYDR-3876 PO; +HYDR-3920 PO
[2020-05-06 10:41] LABS: POTASSIUM 3.9 MMOL/L (3.6-5.0)
[2020-05-06 10:42] LABS: BILIRUBIN,TOTAL 0.3 MG/DL (0.1-1.0); CALCIUM 9.7 MG/DL (8.5-10.1); CREATININE SERUM 1.03 MG/DL (0.60-1.30); TOTAL PROTEIN 7.1 GM/DL (6.4-8.2)
[2020-05-06 10:43] LABS: ALBUMIN 3.9 GM/DL (3.2-4.5)
== END ==
LOC: LAB FS 09:01
PROVIDERS: ATTEND Family Medicine
DX: I10 Essential (primary) hypertension (principal); E11.9 Type 2 diabetes mellitus without complications
CPT/HCPCS: 36415; 80053; 80061; 83036

== ENCOUNTER → 2020-05-25 | Outpatient (CLI) | payer MEDICARE, OTHER ==
--- NOTE | 2020-05-25 12:53 | Diagnostic Imaging Report ---
INDICATION: Routine screening. COMPARISON: 04/18/2019 and 04/16/2018. TECHNIQUE: 2D and 3D bilateral screening mammography was performed with CAD. FINDINGS: Both breasts are heterogeneously dense, limiting the sensitivity of mammography. The circumscribed nodule in the central left breast is stable. There is some ductal dilatation in the retroareolar aspects of both breasts, left greater. No dominant mass or malignant appearing microcalcifications are seen. The axillae are unremarkable. IMPRESSION: No mammographic features suspicious for malignancy are identified. ACR BI-RADS Category 2: Benign findings. Result letter will be mailed to the patient. Note: At least 10% of breast cancer is not imaged by mammography. Dictated by: Dictated on workstation # [id number]
== END ==
LOC: RAD 09:45
PROVIDERS: ATTEND Obstetrics & Gynecology
DX: Z12.31 Encounter for screening mammogram for malignant neoplasm of breast (principal)
CPT/HCPCS: 77063; 77067

== ENCOUNTER → 2020-05-25 | Outpatient (CLI) | payer MEDICARE, OTHER ==
[~2020-05-25] MED LIST changes: +DENOSUMAB 60 MG/1 ML (PROLIA) CANCER CTR SQ SCH; +DOCU-143 PO; +LISI10TA25 PO
== END ==
LOC: ONC 09:47
PROVIDERS: ATTEND Internal Medicine Hematology & Oncology
DX: Z12.31 Encounter for screening mammogram for malignant neoplasm of breast (principal); I10 Essential (primary) hypertension; E11.9 Type 2 diabetes mellitus without complications; E78.5 Hyperlipidemia, unspecified; J45.909 Unspecified asthma, uncomplicated
CPT/HCPCS: 96372

== ENCOUNTER 2020-06-25 05:31 | Outpatient (RCR) | payer MEDICARE, OTHER ==
[~2020-06-25] VITALS: Ht 155 cm; Wt 63.0 kg
[~2020-06-25 05:31] MED LIST changes: -DENOSUMAB 60 MG/1 ML (PROLIA) CANCER CTR SQ SCH; -DOCU-143 PO; +LISI10TA2 PO; -LISI10TA25 PO
[2020-06-29] MEDS ORDERED: DOCU-143 PO (09:08)
== END 2020-06-25 10:04 | disposition home or self-care (01) ==
LOC: PREOP 05:31
PROVIDERS: ATTEND Surgery
DX: Z01.818 Encounter for other preprocedural examination (principal); K92.1 Melena; Z20.822 Contact with and (suspected) exposure to COVID-19
CPT/HCPCS: 87635

== ENCOUNTER 2020-06-29 06:41 | Day surgery (SDC) | payer MEDICARE, OTHER ==
[~2020-06-29] VITALS: Ht 155 cm; Wt 63.0 kg
[2020-06-29] MEDS ORDERED: LACTATED RINGERS 1,000 ML IV ONE (07:02)
[2020-06-29] MEDS ORDERED: MIDAZOLAM 2 MG/2 ML (VERSED) VIAL ONE (07:03)
[2020-06-29] MEDS ORDERED: proPOfol 200 MG/20 ML (DIPRIVAN) VIAL IV ONE (07:03)
[2020-06-29] MEDS ORDERED: LACTATED RINGERS 1,000 ML IV STA (07:05)
[2020-06-29 07:15] VITALS: BP 129/63
--- NOTE | 2020-06-29 08:18 | Progress Note-Pre Operative ---
Pre-Operative Progress Note H&P Reviewed The H&P was reviewed, patient examined and no changes noted. Date Seen by Provider: Jun 29, 2020 Time Seen by Provider: 08:18 Date H&P Reviewed: Jun 29, 2020 Time H&P Reviewed: 08:18 Pre-Operative Diagnosis: change in bowel habits, blood in stool KAMILA PUENTE DO Jun 29, 2020 08:18
[2020-06-29 09:05] VITALS: BP 105/58
--- NOTE | 2020-06-29 09:07 | Progress Note-Post Operative ---
Post-Operative Progess Note Surgeon (s)/Bondactor Machine Operator (s) Surgeon KAMILA PUENTE DO Bondactor Machine Operator: na Pre-Operative Diagnosis change in bowel habits, blood in stool Post-Operative Diagnosis anal mucosal change, sigmoid polyp Procedure & Operative Findings Date of Procedure 06/29/20 Procedure Performed/Findings colonoscopy c hot bx polypectomy, cold anal biopsies Anesthesia Type per sliding joint maker Estimated Blood Loss Estimated blood loss (mL): scant Specimens/Packing Specimens Removed sigmoid polyp, anal biopsies KAMILA PUENTE DO Jun 29, 2020 09:07
[2020-06-29] MEDS ORDERED: DOCU-143 PO (09:08)
--- NOTE | 2020-06-29 09:08 | Discharge Inst-Simple/Standard ---
Discharge Inst-Standard Discharge Medications New, Converted or Re-Newed RX: Transmitted to Pharmacy Patient Instructions/Follow Up Plan of Care/Instructions/FU: 2 weeks Sea Activity as Tolerated: Yes Discharge Diet: Regular Diet KAMILA PUENTE DO Jun 29, 2020 09:08
[2020-06-29 09:10] VITALS: BP 111/58
[2020-06-29 09:15] VITALS: BP 112/55
[2020-06-29 09:40] VITALS: BP 109/56
[2020-06-29 09:55] VITALS: BP 109/56
--- NOTE | 2020-06-29 13:33 | OPERATIVE REPORT ---
DATE OF SERVICE: 06/29/2020 PREOPERATIVE DIAGNOSIS: Change in bowel habits, blood in stool. POSTOPERATIVE DIAGNOSIS: Anal mucosal change, sigmoid polyp. PROCEDURE: Colonoscopy with hot biopsy polypectomy and cold anal biopsies. SURGEON: Kamila Osei DO ANESTHESIA: Per STIFF LEG DERRICK OPERATOR. ESTIMATED BLOOD LOSS: Scant. COMPLICATIONS: None. SPECIMENS: Sigmoid colon polyp and anal biopsies. INDICATIONS: The patient is a 70-year-old female having change in bowel habits, or blood in her stool. She understands risks and benefits of procedure and wished to proceed with procedure. Consent was signed in the chart. DESCRIPTION OF PROCEDURE: The patient was taken to the endoscopy suite, placed in left lateral recumbent position. Timeout was performed. Digital rectal exam was performed. Slight mucosal change on the anterior portion of the anus; slightly rigid feeling like scar tissue, no palpable polyps, masses or ulcerations, just a scant amount of blood from this area. Scope was inserted into the rectum, advanced all the way to cecum with minimal difficulty. Prep was adequate. Scope was then slowly retracted back. There were no polyps, mass, ulceration of the cecum, ascending, transverse and descending colon. In sigmoid colon, small polyp was present, which hot biopsy polypectomy was performed. Scope was continuously retracted back into the rectum, where it was also retroflexed noting no other pathology. Scope was returned to its normal position, slowly withdrawn. Slight mucosal change on the anterior portion of the anus, cold biopsies were obtained. Scope was then slowly retracted back until completely removed. The patient tolerated procedure well without any complications. She was taken to recovery room in stable condition. RECOMMENDATIONS: The patient will need repeat colonoscopy on an as needed basis. Await biopsy results for further recommendations. We will start on stool softener, Colace 100 mg b.i.d. The patient will follow up in 2 weeks. Job ID: [id number] DocumentID: [id number] Dictated Date: 06/29/2020 09:11:29 Trap Setter Date: 06/29/2020 13:32:46 Dictated By: KAMILA OSEI DO
--- NOTE | 2020-06-30 09:54 | Anesthesia-General Post-Op ---
MAC Significant Intra-Op Events Notes addendum 06-29-20 at 1400 Patient Condition Mental Status/LOC: Same as Preop Cardiovascular: Satisfactory Nausea/Vomiting: Absent Respiratory: Satisfactory Pain: Controlled Complications: Absent Post Op Complications Complications None Follow Up Care/Instructions Patient Instructions None needed. Anesthesiology Discharge Order Discharge Order Patient is doing well, no complaints, stable vital signs, no apparent adverse anesthesia problems. No complications reported per nursing. TONI AMBROSIO CRNA Jun 30, 2020 09:54
== END 2020-06-29 09:55 | disposition home or self-care (01) ==
LOC: ENDO 06:41
PROVIDERS: ATTEND Surgery
DX: K63.5 Polyp of colon (principal); K63.89 Other specified diseases of intestine; K92.1 Melena; E11.9 Type 2 diabetes mellitus without complications; J45.909 Unspecified asthma, uncomplicated; E78.5 Hyperlipidemia, unspecified; Z79.899 Other long term (current) drug therapy; Z79.84 Long term (current) use of oral hypoglycemic drugs; Z79.51 Long term (current) use of inhaled steroids; Z88.1 Allergy status to other antibiotic agents; Z88.8 Allergy status to other drugs, medicaments and biological substances; Z90.710 Acquired absence of both cervix and uterus; Z80.41 Family history of malignant neoplasm of ovary; Z80.3 Family history of malignant neoplasm of breast; Z80.49 Family history of malignant neoplasm of other genital organs; Z80.0 Family history of malignant neoplasm of digestive organs
CPT/HCPCS: 82962; 88305

== ENCOUNTER → 2020-11-03 | Outpatient (CLI) | payer MEDICARE, OTHER ==
[~2020-11-03] MED LIST changes: +DOCU-143 PO; -LISI10TA2 PO; +LISI10TA25 PO
[2020-11-03 11:11] LABS: ALBUMIN 4.1 GM/DL (3.2-4.5); BILIRUBIN,TOTAL 0.3 MG/DL (0.1-1.0); CALCIUM 9.6 MG/DL (8.5-10.1); CREATININE SERUM 1.01 MG/DL (0.60-1.30); TOTAL PROTEIN 7.3 GM/DL (6.4-8.2)
== END ==
LOC: LAB FS 10:05
PROVIDERS: ATTEND Family Medicine
DX: E11.9 Type 2 diabetes mellitus without complications (principal); I10 Essential (primary) hypertension
CPT/HCPCS: 36415; 80053; 80061; 82043; 83036

== ENCOUNTER → 2020-11-11 | Outpatient (CLI) | payer MEDICARE, OTHER ==
[2020-11-11 15:25] LABS: CREATININE SERUM 1.06 MG/DL (0.60-1.30); POTASSIUM 3.9 MMOL/L (3.6-5.0)
[2020-11-11 15:26] LABS: ALBUMIN 4.2 GM/DL (3.2-4.5); BILIRUBIN,TOTAL 0.2 MG/DL (0.1-1.0); CALCIUM 10.3 MG/DL (8.5-10.1); TOTAL PROTEIN 7.3 GM/DL (6.4-8.2)
[2020-11-11 16:32] LABS: WHITE BLOOD COUNT 8.6 10^3/uL (4.3-11.0)
[2020-11-11 16:33] LABS: BASOPHILS # (AUTO) 0.1 10^3/uL (0.0-0.1); BASOPHILS % (AUTO) 1 % (0-10); EOSINOPHILS # (AUTO) 0.5 10^3/uL (0.0-0.3); EOSINOPHILS % (AUTO) 6 % (0-10); HEMATOCRIT 40 % (35-52); HEMOGLOBIN 12.7 G/DL (11.5-16.0); LYMPHOCYTES # (AUTO) 2.2 X 10^3 (1.0-4.0); LYMPHOCYTES % (AUTO) 25 % (12-44); MEAN CORPUSCULAR HEMOGLOBIN 30 PG (25-34); MEAN CORPUSCULAR HGB CONC 32 G/DL (32-36); MEAN CORPUSCULAR VOLUME 94 FL (80-99); MEAN PLATELET VOLUME 13.8 FL (7.4-10.4); MONOCYTES # (AUTO) 0.7 X 10^3 (0.0-1.0); MONOCYTES % (AUTO) 8 % (0-12); NEUTROPHILS # (AUTO) 5.1 X 10^3 (1.8-7.8); NEUTROPHILS % (AUTO) 60 % (42-75); PLATELET COUNT 212 10^3/uL (130-400)
== END ==
LOC: LAB FS 13:05
PROVIDERS: ATTEND Internal Medicine Hematology & Oncology
DX: C54.1 Malignant neoplasm of endometrium (principal)
CPT/HCPCS: 36415; 80053; 85025; 86304

== ENCOUNTER → 2020-11-16 | Outpatient (CLI) | payer MEDICARE, OTHER | LOC: ONC 10:01 | PROVIDERS: ATTEND Internal Medicine Hematology & Oncology | DX: C54.1 Malignant neoplasm of endometrium (principal); E11.22 Type 2 diabetes mellitus with diabetic chronic kidney disease; I12.9 Hypertensive chronic kidney disease with stage 1 through stage 4 chronic kidney disease, or unspecified chronic kidney disease; N18.30 Chronic kidney disease, stage 3 unspecified; M81.0 Age-related osteoporosis without current pathological fracture; K62.7 Radiation proctitis; E78.5 Hyperlipidemia, unspecified; Z92.21 Personal history of antineoplastic chemotherapy; Z92.3 Personal history of irradiation; Z98.890 Other specified postprocedural states | CPT/HCPCS: 99213 ==

== ENCOUNTER 2021-04-25 08:59 | Outpatient (RCR) | payer MEDICARE, OTHER ==
[2021-04-25] MEDS ORDERED: IBANDRONATE 3 MG/3 ML IV SCH (10:00)
== END 2021-06-03 | disposition home or self-care (01) ==
LOC: ONC 08:59
PROVIDERS: ATTEND Internal Medicine Hematology & Oncology
DX: C54.1 Malignant neoplasm of endometrium (principal); M81.0 Age-related osteoporosis without current pathological fracture; K62.7 Radiation proctitis; I12.9 Hypertensive chronic kidney disease with stage 1 through stage 4 chronic kidney disease, or unspecified chronic kidney disease; E11.22 Type 2 diabetes mellitus with diabetic chronic kidney disease; N18.30 Chronic kidney disease, stage 3 unspecified; E78.5 Hyperlipidemia, unspecified; Z92.21 Personal history of antineoplastic chemotherapy; Z92.3 Personal history of irradiation
CPT/HCPCS: 96374

== ENCOUNTER → 2021-05-13 | Outpatient (CLI) | payer MEDICARE, OTHER ==
[2021-05-13 11:29] LABS: CREATININE SERUM 1.31 MG/DL (0.60-1.30)
[2021-05-13 11:30] LABS: ALBUMIN 3.2 GM/DL (3.2-4.5); BILIRUBIN,TOTAL 0.7 MG/DL (0.1-1.0); CALCIUM 8.4 MG/DL (8.5-10.1); TOTAL PROTEIN 6.2 GM/DL (6.4-8.2)
== END ==
LOC: LAB FS 09:50
PROVIDERS: ATTEND Family Medicine
DX: E11.9 Type 2 diabetes mellitus without complications (principal); I10 Essential (primary) hypertension
CPT/HCPCS: 36415; 80053; 80061; 82043; 83036

== ENCOUNTER → 2021-05-17 | Outpatient (CLI) | payer MEDICARE, OTHER ==
[2021-05-17 15:33] LABS: FREE T4 (FREE THYROXINE) 0.97 NG/DL (0.70-1.48)
== END ==
LOC: LAB FS 09:54
PROVIDERS: ATTEND Family Medicine
DX: R63.5 Abnormal weight gain (principal)
CPT/HCPCS: 36415; 84439; 84443

== ENCOUNTER → 2021-07-11 | Outpatient (CLI) | payer MEDICARE, OTHER ==
--- NOTE | 2021-07-11 12:41 | Diagnostic Imaging Report ---
INDICATION: Routine screening. COMPARISON: 05/25/2020 and 04/18/2019. TECHNIQUE: 2D and 3D bilateral screening mammography was performed with CAD. FINDINGS: Both breasts are heterogeneously dense, limiting the sensitivity of mammography. Ductal dilatation in the retroareolar left breast is again noted. The circumscribed nodule in the superior left breast is stable. No spiculated mass or malignant-appearing microcalcifications are seen. The axillae are unremarkable. IMPRESSION: No mammographic features suspicious for malignancy are identified. ACR BI-RADS Category 2: Benign findings. Result letter will be mailed to the patient. Note: At least 10% of breast cancer is not imaged by mammography. Dictated by: Dictated on workstation # [id number]
== END ==
LOC: RAD 10:45
PROVIDERS: ATTEND Obstetrics & Gynecology
DX: Z12.31 Encounter for screening mammogram for malignant neoplasm of breast (principal)
CPT/HCPCS: 77063; 77067

== ENCOUNTER → 2021-08-19 | Outpatient (CLI) | payer MEDICARE, OTHER ==
--- NOTE | 2021-08-19 11:37 | Diagnostic Imaging Report ---
INDICATION: Dyspnea. TIME OF EXAM: 10:49 AM Correlation is made with prior chest from 12/18/2019. FINDINGS: Heart size normal. There is a density that is developing just lateral to the left hilum. This is suspicious for a mass. There is some atelectasis in the left base. Right lung is clear. There is no effusion or pneumothorax. IMPRESSION: Left perihilar mass. Dedicated CT chest would be recommended for further evaluation. Dictated by: Dictated on workstation # [id number]
== END ==
LOC: RAD FS 10:37
PROVIDERS: ATTEND Registered Nurse Emergency
DX: R91.8 Other nonspecific abnormal finding of lung field (principal); R06.00 Dyspnea, unspecified
CPT/HCPCS: 71046

== ENCOUNTER → 2021-09-01 | Outpatient (CLI) | payer MEDICARE, OTHER ==
[~2021-09-01] MED LIST changes: +CATHETER FLUSH 10 ML SYR IV PRN; +HOLD METFORMIN - RECEIVED CONTRAST 20 ML VIAL IV SCH; +IOHEXOL 350 MG/ML 100 ML (OMNIPAQUE 350) VIAL IV ONE; +NS 100 ML (IVPB) BAG IV ONE
[2021-09-01 13:00] LABS: CREATININE SERUM 1.15 MG/DL (0.60-1.30); POTASSIUM 4.2 MMOL/L (3.6-5.0)
--- NOTE | 2021-09-01 15:11 | Diagnostic Imaging Report ---
PROCEDURE: CT chest with contrast only. TECHNIQUE: Multiple contiguous axial images were obtained through the chest after administration of intravenous contrast. Auto Exposure Controls were utilized during the CT exam to meet ALARA standards for radiation dose reduction. INDICATION: Lung mass, abnormal chest x-ray. COMPARISON: CT dated 10/29/2009 and radiographs dated 08/19/2021. FINDINGS: No pathologically enlarged lymph nodes within the chest. Scattered vascular calcifications, including within the coronary arteries. No aneurysmal dilatation of the thoracic aorta. The heart is within normal limits in size. No pericardial effusion. No pleural effusion. No pneumothorax. A new predominantly solid though partially cystic mass is identified within the left upper lobe measuring 3.0 x 2.2 cm. This corresponds to the abnormality noted on recent radiography. An additional irregular mildly thick-walled cavitary lesion is noted within the medial aspect of the right lower lobe measuring 2.3 x 1.7 cm, which is also new since 2009. Questionable additional 0.9 x 0.7 cm cavitary lesion within the left lower lobe, series 5, image 74 and series 7, image 115. 0.7 cm branching right upper lobe pulmonary nodule is also present. 0.4 cm subpleural right upper lobe pulmonary nodule. Minimal scarring and/or atelectasis within the left lung base. Cholecystectomy. Fatty infiltration of the tail of the pancreas is again seen. Multiple small hypodensities are identified within the left kidney. The majority of these were present in 2009, though have slightly increased in size since that time. Additional tiny hypodensities are also seen within the right kidney, which are too small to characterize. The visualized upper abdomen is otherwise unremarkable. Scattered osseous degenerative changes without acute osseous abnormality. IMPRESSION: Interval development of irregular thick-walled cavitary lesions within the left greater than right lungs. This includes a 3 cm dominant mass within the left upper lobe, which corresponds to the recent radiographs. This could relate to an underlying infectious etiology, including a fungal etiology. However, neoplasm needs to be excluded. CT-guided biopsy of the mass within the left upper lobe is recommended. Additional findings as described above. Dictated by: Dictated on workstation # [id number]
== END ==
LOC: LAB FS 12:07
PROVIDERS: ATTEND Registered Nurse Emergency
DX: R91.8 Other nonspecific abnormal finding of lung field (principal); I51.7 Cardiomegaly; I35.8 Other nonrheumatic aortic valve disorders
CPT/HCPCS: 36415; 71260; 80048; 93306; Q9967

== ENCOUNTER → 2021-09-15 | Outpatient (CLI) | payer MEDICARE, OTHER ==
[2021-09-15] VITALS (11 sets, daily range): BP systolic 102–118; BP diastolic 47–65
[~2021-09-15] MED LIST changes: -CATHETER FLUSH 10 ML SYR IV PRN; +CETI10TA49 PO; -HOLD METFORMIN - RECEIVED CONTRAST 20 ML VIAL IV SCH; +HYDROcodone/APAP 5 MG/325 MG (LORTAB) TAB PO PRN; -IOHEXOL 350 MG/ML 100 ML (OMNIPAQUE 350) VIAL IV ONE; +LIDOCAINE 1% INJ 20 ML VIAL INJ ONE; +MIDAZOLAM 2 MG/2 ML (VERSED) VIAL IVP ONE; +MONT4TAB17 PO; -NS 100 ML (IVPB) BAG IV ONE; +NS IV 1000 ML 1,000 ML IV STA; +fentaNYL INJ 100 MCG/2 ML AMP IVP ONE
[2021-09-15 08:36] LABS: HEMATOCRIT 39 % (35-52); HEMOGLOBIN 12.3 g/dL (11.5-16.0); MEAN CORPUSCULAR HEMOGLOBIN 30 pg (25-34); MEAN CORPUSCULAR HGB CONC 32 g/dL (32-36); MEAN CORPUSCULAR VOLUME 93 fL (80-99); MEAN PLATELET VOLUME 12.8 fL (9.0-12.2); PLATELET COUNT 210 10^3/uL (130-400)
[2021-09-15 08:47] LABS: INR 0.9 (0.8-1.4); PROTHROMBIN TIME PATIENT 12.7 SEC (12.2-14.7)
--- NOTE | 2021-09-15 12:14 | Pre-Op Note & Conscious Sedat ---
Pre-Operative Progress Note H&P Reviewed The H&P was reviewed, patient examined and no changes noted. Date H&P Reviewed: Sep 15, 2021 Time H&P Reviewed: 09:00 Pre-Op Diagnosis: lung mass Conscious Sedation Pre-Proced Time 09:00 ASA Score 2 For ASA 3 and 4: Consider anesthesia and medical clearance. Also, for patients with a history of failed moderate sedation consider anesthesia. Airway Lungs Heart ASA score ASA 1: a normal healthy patient ASA 2: a patient with a mild systemic disease (mid diabetes, controlled hypertension, obesity ASA 3: a patient with a severe systemic disease that limits activity (angina, COPD, prior Myocardial infarction) ASA 4: a patient with an incapacitating disease that is a constant threat to life (CHF, renal failure) ASA 5: a moribund patient not expected to survive 24 hrs. (ruptured aneurysm) ASA 6: a declared brain- patient whose organs are being harvested. For emergent operations, add the letter E after the classification Mallampati Classification Grade 2 Sedation Plan Analgesia, Amnesia, Plan communicated to team members, Discussed options with patient/fam, Discussed risks with patient/fam The patient is an appropriate candidate to undergo the planned procedure, sedation, and anesthesia. The patient immediately re-assessed prior to indication. OSIEL SERRANO MD Sep 15, 2021 12:14
--- NOTE | 2021-09-15 12:24 | Diagnostic Imaging Report ---
INDICATION: Cavitary lung masses. Patient presents for CT-guided biopsy. TECHNIQUE: All CT scans use one or more of the following dose optimizing techniques: automated exposure control, MA and/or KvP adjustment based on patient size and exam type or iterative reconstruction. The patient was brought to the CT suite placed on table in right side decubitus position. Axial imaging through the chest was performed to evaluate appropriate entry site. The procedure was performed utilizing conscious sedation with radiology nursing and constant patient monitoring. Patient was given a total of 50 mcg of fentanyl intravenously and 0.5 mg of Versed intravenously. Total procedure time was 10 minutes. The right posterior thorax was prepped and draped usual sterile fashion. Small amount of 1% lidocaine was utilized for local anesthesia. A 18-gauge coaxial Temno needle was advanced from a lower right posterior approach placed with its tip along the edge of the cavitary lesion in the medial right lower lobe. 4 core biopsies were obtained. Biosentry closure device was deployed during needle removal. Follow-up imaging does show some perilesional hemorrhage. No significant pneumothorax is identified. Follow-up chest x-ray in 2 hours will be performed. IMPRESSION: Successful CT-guided core biopsy of a right lower lobe cavitary lung mass utilizing conscious sedation. Pathology results are currently pending. Dictated by: Dictated on workstation # [id number]
--- NOTE | 2021-09-15 12:24 | Diagnostic Imaging Report ---
INDICATION: Lung biopsy follow-up Expiratory chest 12:20 PM Heart and mediastinum are normal. Lungs are clear. There are no effusions or pneumothoraces. IMPRESSION: Unremarkable postbiopsy chest. Dictated by: Dictated on workstation # [id number]
== END ==
LOC: SDC 07:54
PROVIDERS: ATTEND Surgery
DX: R91.8 Other nonspecific abnormal finding of lung field (principal)
CPT/HCPCS: 71045; 77012; 85027; 85610; 85730; 99156; C2613; 36415

== ENCOUNTER 2021-10-24 11:00 | Outpatient (RCR) | payer MEDICARE, OTHER ==
[~2021-10-24 11:00] MED LIST changes: -HYDROcodone/APAP 5 MG/325 MG (LORTAB) TAB PO PRN; -LIDOCAINE 1% INJ 20 ML VIAL INJ ONE; -MIDAZOLAM 2 MG/2 ML (VERSED) VIAL IVP ONE; -NS IV 1000 ML 1,000 ML IV STA; -fentaNYL INJ 100 MCG/2 ML AMP IVP ONE
[2021-10-25] MEDS ORDERED: MONT-40 PO (10:45)
[2021-10-25] MEDS ORDERED: CA C1TAB75 PO (10:45)
[2021-10-25] MEDS ORDERED: RT-ALBUINH INH (10:45)
[2021-10-25] MEDS ORDERED: DIPH25CA79 PO (10:45)
== END 2021-11-01 | disposition home or self-care (01) ==
LOC: ONC 11:00
PROVIDERS: ATTEND Radiology Radiation Oncology
DX: C54.1 Malignant neoplasm of endometrium (principal); C78.01 Secondary malignant neoplasm of right lung; I87.2 Venous insufficiency (chronic) (peripheral); I10 Essential (primary) hypertension; E11.9 Type 2 diabetes mellitus without complications; E78.5 Hyperlipidemia, unspecified; J45.909 Unspecified asthma, uncomplicated
CPT/HCPCS: 99204

== ENCOUNTER 2021-10-25 05:28 | Outpatient (CLI) | payer MEDICARE, OTHER ==
[~2021-10-25] VITALS: Ht 154.9 cm; Wt 62.1 kg
[2021-10-25] MEDS ORDERED: RT-ALBUINH INH (10:45)
[2021-10-25] MEDS ORDERED: MONT-40 PO (10:45)
[2021-10-25] MEDS ORDERED: DIPH25CA79 PO (10:45)
[2021-10-25] MEDS ORDERED: CA C1TAB75 PO (10:45)
== END 2021-10-25 11:14 | disposition home or self-care (01) ==
LOC: PREOP 05:28
PROVIDERS: ATTEND Surgery
DX: Z01.818 Encounter for other preprocedural examination (principal)

== ENCOUNTER 2021-10-26 05:50 | Day surgery (SDC) | payer MEDICARE, OTHER ==
[~2021-10-26] VITALS: Ht 154 cm; Wt 62.1 kg
[2021-10-26] VITALS (7 sets, daily range): BP systolic 80–115; BP diastolic 46–68
[~2021-10-26 05:50] MED LIST changes: +CA C1TAB75 PO; +DIPH25CA79 PO; +MONT-40 PO; +RT-ALBUINH INH
[2021-10-26] MEDS ORDERED: LACTATED RINGERS 1,000 ML IV PRN (06:45)
[2021-10-26] MEDS ORDERED: CLINDAMYCIN 600 MG/50 ML IVPB 50 ML IV ONE (06:45)
--- NOTE | 2021-10-26 06:51 | Progress Note-Pre Operative ---
Pre-Operative Progress Note H&P Reviewed The H&P was reviewed, patient examined and no changes noted. 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
[2021-10-26] MEDS ORDERED: HEParin (CENTRAL IV FLUSH) 500 UNIT/5 ML SYR ONE (07:04)
[2021-10-26] MEDS ORDERED: 0.9% SODIUM CHLORIDE PF INJ 20 ML VIAL ONE (07:04)
[2021-10-26] MEDS ORDERED: LIDOCAINE/EPI 2% 1:200,00 (XYLOCAINE) 20 ML VIAL ONE (07:04)
[2021-10-26] MEDS ORDERED: LIDOCAINE PF 2% 5 ML (XYLOCAINE) VIAL ONE (07:05)
[2021-10-26] MEDS ORDERED: PROPOFOL INJECTION 50 ML IV ONE (07:05)
[2021-10-26] MEDS ORDERED: MIDAZOLAM 2 MG/2 ML (VERSED) VIAL ONE (07:06)
[2021-10-26] MEDS ORDERED: morphine INJ 10 MG/ML 1ML (SYR OR VIAL) IVP ONE (07:15)
[2021-10-26] MEDS ORDERED: ONDANSETRON 4 MG/2 ML (SDV) Z0FRAN IVP PRN (07:15)
--- NOTE | 2021-10-26 07:59 | Discharge Inst-Simple/Standard ---
Discharge Inst-Standard Patient Instructions/Follow Up Plan of Care/Instructions/FU: 2 weeks Sea Activity as Tolerated: No Discharge Diet: Regular Diet Other Inst to Patient Follow up Appt: Make appointment for 2 week. Instructions: No lifting greater than 10 pounds. No strenuous activity. May shower in 24 hours, no tub bath or soaking. Use incentive spirometer at home as directed. No Smoking Skin/Wound Care: You have special glue over your incision that will fall off on it's own. Ice pack on 15 min and off 30 min and repeat for first 48 hours to reduce swelling and discomfort. Symptoms to Report: Appetite Changes, Extremity Discoloration, Numbness/Tingling, Swelling Increased, Bleeding Excessive, Eyesight Changes, Pain Increased, Urine Color Change, Constipation(Persistent), Fever over 101 degree F, Pain/Pressure in chest, Urinating Difficulty, Cough Up/Vomit Blood, Heart Beat Irreg/Pounding, Pain/Pressure in jaw, Vaginal Bleeding Increase, Cramps in feet or legs, Lightheadedness, Pain/Pressure in shoulder, Diarrhea(Persistent), Memory Changes Suddenly, Questions/Concerns, Weight gain consecutive days, Dizziness/Fainting, Nausea/Vomiting, Shortness of Breath, Weight gain over 2 pounds If questions or concerns contact your physician Or seek help at emergency department. KAMILA PUENTE DO October 26, 2021 07:59
--- NOTE | 2021-10-26 08:01 | Progress Note-Post Operative ---
Post-Operative Progess Note Surgeon (s)/Costume Director (s) Surgeon KAMILA PUENTE DO Costume Director: na Pre-Operative Diagnosis metastatic endometrial carcinoma (adenocarcinoma lung) Post-Operative Diagnosis same Procedure & Operative Findings Date of Procedure 10/26/21 Procedure Performed/Findings PROCEDURE: Right internal jugular port placement using ultrasound guidance. COMPLICATIONS: None. INDICATIONS: The patient is a 71 year old female with metastatic endometrial cancer. Patient understands the risks and benefits of port placement and wished to proceed with the procedure. Consent was signed on the chart. PROCEDURE: The patient was taken to the operating suite, was prepped and draped in the sterile fashion. A surgical pause was performed. Ultrasound was used to locate the internal jugular vein. Once located anesthetic was infiltrated above it. Using micro-access kit, the right internal vein was accessed. Dark nonpulsatile blood was withdrawn. The wire was inserted. Fluoroscopy assured proper placement. The needle was removed. The micro-access dilator was advanced over the wire and the wire was removed. The regular wire was inserted and fluoroscopy assured proper placement. The wire was then secured. Local anesthetic was used to anesthetize from the neck for tunneling down to the right chest and for pocket creation. A 15 blade scalpel was used to make an incision over the right chest. Cautery was used to dissect down to the pectoral fascia. A pocket was created with blunt dissection. The dilator sheath was then advanced over the wire under fluoroscopy and the dilator and wire were removed. The Groshong catheter was inserted through the sheath and the sheath was then removed. The Groshong wire was removed. The catheter was then tunneled to the right chest pocket. Fluoroscopy was used to cut to length and this was then attached to the port which was then placed within the pocket. The port was then accessed without difficulty. It was then flushed with saline and then heparin. The subcutaneous tissues were then reapproximated using 3-0 Vicryl. The areas were then washed and dried. Skin Affix was placed over incision. The insertion point of the neck Skin Affix was placed over the incision. The patient tolerated the procedure well without complication and was taken to recovery room in stable condition. Chest x-ray is pending. Anesthesia Type mac c local Estimated Blood Loss Estimated blood loss (mL): minimal Specimens/Packing Specimens Removed KAMILA Byers DO October 26, 2021 08:01
--- NOTE | 2021-10-26 08:38 | Diagnostic Imaging Report ---
EXAMINATION: Chest 1 view HISTORY: Port placement. COMPARISON: 09/15/2021. 09/01/2021. FINDINGS: There has been interval placement of a right port with the tip overlying the low SVC. The lung volumes are normal. Previously visualized solid partially cavitary lesions in both lungs are not well characterized on this exam. No focal consolidations. No large pleural effusion or pneumothorax is seen. The cardiomediastinal silhouette is normal in size and contour. There is calcified aortic atherosclerotic plaque. No acute osseous abnormality is seen. IMPRESSION: 1. Interval right-sided port placement with the tip overlying the low SVC. 2. Previously visualized cavitary lesions in both lungs are not well seen on today's exam. No new focal consolidations. Dictated by: Dictated on workstation # [id number]
--- NOTE | 2021-10-26 08:42 | Diagnostic Imaging Report ---
INDICATION: Central line placement. IMPRESSION: 13.9 seconds of fluoroscopy and a single AP digital image were used in Surgery for Port-A-Cath placement by Dr. Osei. The single image shows the catheter tip projecting over the SVC. Dictated by: Dictated on workstation # [id number]
--- NOTE | 2021-10-26 14:23 | Anesthesia-General Post-Op ---
MAC Patient Condition Mental Status/LOC: Same as Preop Cardiovascular: Satisfactory Nausea/Vomiting: Absent Respiratory: Satisfactory Pain: Controlled Complications: Absent Post Op Complications Complications None Follow Up Care/Instructions Patient Instructions None needed. Anesthesiology Discharge Order Discharge Order Patient was doing well this morning after the procedure with no complaints, stable vital signs, no apparent adverse anesthesia problems. RAS ASCENCIO DO October 26, 2021 14:23
== END 2021-10-26 09:25 | disposition home or self-care (01) ==
LOC: SDC 05:50
PROVIDERS: ATTEND Surgery
DX: C78.01 Secondary malignant neoplasm of right lung (principal); C54.1 Malignant neoplasm of endometrium; I87.2 Venous insufficiency (chronic) (peripheral); E11.9 Type 2 diabetes mellitus without complications; Z79.84 Long term (current) use of oral hypoglycemic drugs
CPT/HCPCS: 36561; 71045; 76000; 82947; 87081; C1788

== ENCOUNTER → 2021-11-08 | Outpatient (CLI) | payer MEDICARE, OTHER ==
[2021-11-08 10:56] LABS: CREATININE SERUM 0.96 MG/DL (0.60-1.30); POTASSIUM 4.5 MMOL/L (3.6-5.0)
[2021-11-08 10:57] LABS: ALBUMIN 3.9 GM/DL (3.2-4.5); BILIRUBIN,TOTAL 0.5 MG/DL (0.1-1.0); CALCIUM 8.6 MG/DL (8.5-10.1); TOTAL PROTEIN 6.7 GM/DL (6.4-8.2)
[2021-11-08 15:35] LABS: FREE T4 (FREE THYROXINE) 0.99 NG/DL (0.70-1.48)
== END ==
LOC: LAB FS 09:09
PROVIDERS: ATTEND Family Medicine
DX: Z00.00 Encounter for general adult medical examination without abnormal findings (principal); Z23 Encounter for immunization; J30.2 Other seasonal allergic rhinitis; I10 Essential (primary) hypertension; E11.9 Type 2 diabetes mellitus without complications; E78.5 Hyperlipidemia, unspecified; R80.9 Proteinuria, unspecified; R63.5 Abnormal weight gain
CPT/HCPCS: 36415; 80053; 80061; 83036; 84439; 84443

== ENCOUNTER 2021-12-13 20:38 | Observation (INO) | payer MEDICARE, OTHER ==
[~2021-12-13] VITALS: Ht 155 cm; Wt 61.4 kg
[2021-12-13] MEDS ORDERED: cefTRIAXone 1 GM PRE-MIX 50 ML IV ONE (21:15)
[2021-12-13] MEDS ORDERED: NS IV 1000 ML 1,000 ML IV SCH (21:15)
--- NOTE | 2021-12-13 21:15 | ED GU-Female ---
General Chief Complaint: - Reproductive Stated Complaint: UTI ON MEDICATION KEEPS GOING [place] Source: patient Exam Limitations: no limitations History of Present Illness Date Seen by Provider: Dec 13, 2021 Time Seen by Provider: 21:12 Initial Comments Patient is a 71-year-old female with a history of adenocarcinoma of the lung currently on chemotherapy being managed by Dr. Watson who presents ED with urinary symptoms. Symptoms started 5 days ago. Patient Was placed on Macrobid by her primary care physician Dr. Vazquez. Patient states she started feeling ill and sick yesterday with chills, fatigue and weakness. Patient with some mild discomfort with urination today. She reports intermittent diarrhea and constipation secondary to medication she takes. No cough, sore throat, ear pain, headache, dizziness, visual changes. Up-to-date her COVID-vaccine. Patient is tachycardic. She reports feeling feverish at home. Patient denies of any abdominal pain, flank pain Allergies and Home Medications Allergies Coded Allergies: polyethylene glycol (Unverified Allergy, Mild, HIVES, 10/25/21) ampicillin (Verified Allergy, Unknown, HIVES, 10/25/21) fluticasone (Verified Adverse Reaction, Mild, 10/25/21) salmeterol (Verified Adverse Reaction, Mild, HALLUCINATIONS, 10/25/21) Patient Home Medication List Home Medication List Reviewed: Yes Cetirizine HCl (Zyrtec) 10 Mg Tablet, 10 MG PO DAILY, (Reported) Entered as Reported by: LORENZO ALAS on 09/15/21 0820 Last Action: Continued Glipizide (Glipizide) 5 Mg Tablet, 5 MG PO BID, (Reported) Entered as Reported by: GUERO WETZEL on 12/14/21 1448 Last Action: Held Lisinopril (Lisinopril) 5 Mg Tablet, 5 MG PO DAILY, (Reported) Entered as Reported by: GUERO WETZEL on 12/14/21 1448 Last Action: Held Metformin HCl (Metformin HCl) 500 Mg Tablet, 500 MG PO DAILY, (Reported) Entered as Reported by: MARCIN LUNDBERG on 06/21/20 1207 Last Action: Held Montelukast Sodium (Montelukast Sodium) 10 Mg Tablet, 10 MG PO DAILY, (Reported) Entered as Reported by: LETICIA LU on 10/25/21 1045 Last Action: Continued Sorbitol Solution (Sorbitol) 70 % Solution, 30 ML PO BID PRN for CONSTIPATION, (Reported) Entered as Reported by: GUERO WETZEL on 12/14/21 1448 Last Action: Continued Sulfamethoxazole/Trimethoprim (Bactrim Ds Tablet) 1 Each Tablet, 1 EACH PO BID Prescribed by: DAVID ROSENTHAL on 12/15/21 1142 Discontinued Medications Albuterol Sulfate (Ventolin Hfa) 1 Puff Puff, 2 PUFF INH Q4H, (Reported) Discontinued Reason: No Longer Taking Entered as Reported by: LETICIA LU on 10/25/211044 Last Action: Discontinued Ca Carbonate/Vitamin D3/Vit K (Calcium + D Soft Chewable Tab) 500 Mg Calcium- 1,000 Unit-40 Mcg Tab.chew, 2 EACH PO DAILY, (Reported) Discontinued Reason: No Longer Taking Entered as Reported by: LETICIA LU on 10/25/21 104 Last Action: Discontinued Diphenhydramine HCl (Benadryl) 25 Mg Capsule, 25 MG PO UD, (Reported) Discontinued Reason: No Longer Taking Entered as Reported by: LETICIA LU on 10/25/211044 Last Action: Discontinued Lisinopril (Lisinopril) 10 Mg Tablet, 20 MG PO DAILY, (Reported) Discontinued Reason: No Longer Taking Entered as Reported by: MARCIN LUNDBERG on 06/21/20 1207 Last Action: Discontinued Nitrofurantoin Macrocrystal (Nitrofurantoin) 100 Mg Capsule, 100 MG PO BID, (Reported) Entered as Reported by: GUERO WETZEL on 12/14/21 1448 Last Action: Held Review of Systems Review of Systems Constitutional: malaise, weakness EENTM: No blurred vision, No double vision Respiratory: No cough, No short of breath Cardiovascular: No chest pain Musculoskeletal: No back pain, No joint pain Skin: No change in color, No change in hair/nails Psychiatric/Neurological: Denies Anxiety All Other Systemes Reviewed Negative Unless Noted: Yes Past Xkemrdj-Vflypd-Pcebjo Hx Immunizations Up To Date Tetanus Booster (TDap): Unknown Seasonal Allergies Seasonal Allergies: Yes Past Medical History Surgeries: Yes (RT THUMB SX, several kidney stone sx ) Gallbladder, Hysterectomy, Tonsillectomy Respiratory: Yes (ventolin used for allergy induced asthma) Asthma Currently Using CPAP: No Currently Using BIPAP: No Cardiac: Yes Heart Murmur, Hypertension Neurological: No Reproductive Disorders: No JAILER History: Hysterectomy Sexually Transmitted Disease: No Genitourinary: Yes Kidney Stones Gastrointestinal: No Musculoskeletal: Yes (right thumb) Fractures Endocrine: Yes Diabetes, Non-Insulin dep HEENT: No Loss of Vision: Bilateral Hearing Impairment: Denies Cancer: Yes (ENDOMETRIAL CA) Did You Recieve Any Treatments: Yes What Type of Treatment Did You: Chemotherapy, Radiation, Surgical Intervention Psychosocial: No Integumentary: No Blood Disorders: No Adverse Reaction/Blood Tranf: No (N/A) Physical Exam Vital Signs Vital Signs - First Documented 12/13/21 20:48 Temp 38.5 Pulse 111 Resp 19 B/P (MAP) 126/76 (93) Pulse Ox 96 O2 Delivery Room Air Capillary Refill : Height, Weight, BMI Height: 5'1.00" Weight: 132lbs. 0.0oz. [id number]; 26.18 BMI Method: General Appearance: WD/WN, no apparent distress HEENT: PERRL/EOMI, normal ENT inspection, TMs normal, pharynx normal Neck: non-tender, full range of motion, supple Cardiovascular: no edema, no gallop, no JVD, tachycardia Respiratory: chest non-tender, lungs clear, normal breath sounds, no respiratory distress, no accessory muscle use Gastrointestinal: normal bowel sounds, non tender, soft Extremities: normal range of motion, non-tender Neurologic/Psychiatric: screen printer helper II-XII nml as tested, no motor/sensory deficits, alert, normal mood/affect Skin: normal color, warm/dry Focused Exam Lactate Level 12/13/21 21:20: Lactic Acid Level 2.62*H 12/13/21 23:16: Lactic Acid Level 1.71 Lactic Acid Level Progress/Results/Core Measures Suspected Sepsis SIRS Temperature: Pulse: Respiratory Rate: Laboratory Tests 12/13/21 21:20: White Blood Count 3.8L 12/14/21 05:50: White Blood Count 3.8L Blood Pressure / Mean: 12/13/21 21:20: Lactic Acid Level 2.62*H 12/13/21 23:16: Lactic Acid Level 1.71 Laboratory Tests 12/13/21 21:20: Creatinine 0.93, INR Comment 1.0, Platelet Count 154, Total Bilirubin 0.6 12/14/21 05:50: Creatinine 0.79, Platelet Count 155 Results/Orders Lab Results Laboratory Tests Test 12/14/21 20:34 12/15/21 05:28 12/15/21 10:34 Range/Units Glucometer 164 H 118 H 133 H 70-110 MG/DL My Orders Medications Given in ED Vital Signs/I&O Capillary Refill : ECG Comment Sinus tachycardia, 102 bpm, QRS duration 76 MS, QTc 365 MS Departure Communication (Admissions) Time/Spoke to Admitting Phy: 22:31 Dr. Cole accepts patient. Communication (PCP) Patient failed outpatient therapy was placed on Macrobid for UTI. Worsening symptoms. She was tachycardic. Sepsis protocol was initiated. Lactic acid 2.62. Initially was given a liter fluid and started on a second liter of fluid here. She was given IV Rocephin. White blood count 3.8. Normal kidney function, liver function. She has no abdominal pain or flank pain. Chest x-ray was negative for pneumonia. Urinalysis with UTI. Due to failed outpatient therapy patient will be admitted for IV antibiotics. Patient with a history of adenocarcinoma of the lung, endometrial cancer . Currently on chemotherapy once a week by Dr. Watson. As patient is currently symptomatic and septic patient will be admitted for IV hydration, IV antibiotics. Patient was discussed with Dr. Cole who agrees with admission. Improvement of lactic acid. Impression Primary Impression: Urinary tract infection Disposition: ADMITTED INPATIENT Condition: Stable Admissions Decision to Admit Reason: Admit from ER (General) Decision to Admit/Date: Dec 13, 2021 Time/Decision to Admit Time: 22:31 Departure-Patient Inst. Referrals: LETICIA VAZQUEZ MD (PCP) Primary Care Physician Scripts Sulfamethoxazole/Trimethoprim (Bactrim Ds Tablet) 1 Each Tablet 1 EACH PO BID for 7 Days, #14 TAB Prov: DAVID ROSENTHAL MD 12/15/21 BRENTON SQUIRES Dec 13, 2021 21:15
[2021-12-13 21:16] LABS: BILIRUBIN,URINE NEGATIVE (NEGATIVE); CLARITY,URINE CLOUDY; COLOR,URINE YELLOW; GLUCOSE, URINE (UA) 1+ (NEGATIVE); KETONES,URINE NEGATIVE (NEGATIVE); LEUKOCYTE ESTERASE ,URINE 3+ (NEGATIVE); NITRITE,URINE POSITIVE (NEGATIVE); PROTEIN,URINE 2+ (NEGATIVE)
[2021-12-13 21:27] LABS: BACTERIA,URINE MODERATE /HPF; SQUAMOUS EPITHELIAL CELL,UR 0-2 /HPF; WBC,URINE TNTC /HPF
[2021-12-13 21:39] LABS: BASOPHILS % (AUTO) 1 % (0-10); EOSINOPHILS % (AUTO) 1 % (0-10); HEMATOCRIT 30 % (35-52); HEMOGLOBIN 9.7 g/dL (11.5-16.0); LYMPHOCYTES # (AUTO) 0.5 10^3/uL (1.0-4.0); LYMPHOCYTES % (AUTO) 14 % (12-44); MEAN CORPUSCULAR HEMOGLOBIN 30 pg (25-34); MEAN CORPUSCULAR HGB CONC 32 g/dL (32-36); MEAN CORPUSCULAR VOLUME 94 fL (80-99); MEAN PLATELET VOLUME 11.9 fL (9.0-12.2); MONOCYTES # (AUTO) 0.3 10^3/uL (0.0-1.0); MONOCYTES % (AUTO) 7 % (0-12); NEUTROPHILS % (AUTO) 78 % (42-75); PLATELET COUNT 154 10^3/uL (130-400); WHITE BLOOD COUNT 3.8 10^3/uL (4.3-11.0)
[2021-12-13 21:50] LABS: ALBUMIN 3.8 GM/DL (3.2-4.5); POTASSIUM 3.7 MMOL/L (3.6-5.0)
[2021-12-13 21:51] LABS: CALCIUM 8.6 MG/DL (8.5-10.1)
[2021-12-13 21:52] LABS: PROTHROMBIN TIME PATIENT 13.7 SEC (12.2-14.7); TOTAL PROTEIN 6.6 GM/DL (6.4-8.2)
[2021-12-13 21:54] LABS: BILIRUBIN,TOTAL 0.6 MG/DL (0.1-1.0)
[2021-12-13 21:56] LABS: CREATININE SERUM 0.93 MG/DL (0.60-1.30)
--- NOTE | 2021-12-13 22:51 | Diagnostic Imaging Report ---
EXAMINATION: Chest 1 view HISTORY: Cough. COMPARISON: 10/26/2021. FINDINGS: Stable right port. The lung volumes are normal. No focal consolidation is seen. No large pleural effusion or pneumothorax is seen. The cardiomediastinal silhouette is normal in size and contour. There is calcified aortic atherosclerotic plaque. No acute osseous abnormality is seen. IMPRESSION: 1. No acute pleuroparenchymal process. Dictated by: Dictated on workstation # [id number]
[2021-12-14] VITALS (7 sets, daily range): BP systolic 95–120; BP diastolic 54–68
[2021-12-14] MEDS ORDERED: ACETAMINOPHEN 500 MG TAB (TYLENOL) PO PRN (01:15)
[2021-12-14] MEDS ORDERED: ONDANSETRON 4 MG/2 ML (SDV) Z0FRAN IV PRN ×2 (01:15→17:45)
[2021-12-14] MEDS: NS IV 1000 ML 1,000 ML IV SCH ×3 (01:25→17:52)
[2021-12-14 05:56] LABS: BASOPHILS % (AUTO) 1 % (0-10); EOSINOPHILS # (AUTO) 0.1 10^3/uL (0.0-0.3); EOSINOPHILS % (AUTO) 1 % (0-10); HEMATOCRIT 27 % (35-52); HEMOGLOBIN 8.9 g/dL (11.5-16.0); LYMPHOCYTES # (AUTO) 0.8 10^3/uL (1.0-4.0); LYMPHOCYTES % (AUTO) 20 % (12-44); MEAN CORPUSCULAR HEMOGLOBIN 31 pg (25-34); MEAN CORPUSCULAR HGB CONC 33 g/dL (32-36); MEAN CORPUSCULAR VOLUME 94 fL (80-99); MEAN PLATELET VOLUME 12.2 fL (9.0-12.2); MONOCYTES # (AUTO) 0.3 10^3/uL (0.0-1.0); MONOCYTES % (AUTO) 8 % (0-12); NEUTROPHILS # (AUTO) 2.7 10^3/uL (1.8-7.8); NEUTROPHILS % (AUTO) 70 % (42-75); PLATELET COUNT 155 10^3/uL (130-400); WHITE BLOOD COUNT 3.8 10^3/uL (4.3-11.0)
[2021-12-14 06:11] LABS: POTASSIUM 3.6 MMOL/L (3.6-5.0)
[2021-12-14 06:12] LABS: CALCIUM 7.8 MG/DL (8.5-10.1)
[2021-12-14 06:17] LABS: CREATININE SERUM 0.79 MG/DL (0.60-1.30)
[2021-12-14] MEDS ORDERED: NITR100C PO (14:48)
[2021-12-14] MEDS ORDERED: GLIP5TAB13 PO (14:48)
[2021-12-14] MEDS ORDERED: SORB1SOL2 PO (14:48)
[2021-12-14] MEDS ORDERED: LISI5TAB20 PO (14:48)
--- NOTE | 2021-12-14 17:41 | History & Physical-Hospitalist ---
History of Present Illness HPI/Chief Complaint Katie Booker is a 71 year old female with PMH HTN, T2DM, COPD, history of endometrial cancer, adenocarcinoma of the lung on chemotherpy, who presented with dysuria. She reports having symptoms for several days. She was also having urgency and frequency. She was started on Macrobid but her symptoms did not improve. She started having fevers and chills and decided to come to the ER. She was not having any chest pain, shortness of breath, nausea, vomiting, or diarrhea. Source: patient Exam Limitations: no limitations Date Seen 12/14/21 Time Seen by a Provider: 11:35 Attending Physician Mia Pereira MD PCP Admitting Physician: Matt Cole MD Attending Physician: Matt Cole MD Referring Physician Date of Admission Dec 13, 2021 at 22:30 Home Medications & Allergies Home Medications Reviewed patient Home Medication Reconciliation performed by pharmacy medication reconciliations exhaust emissions automotive technician and/or nursing. Patients Allergies have been reviewed. Allergies Allergies Coded Allergies polyethylene glycol (Unverified Allergy, Mild, HIVES, 10/25/21) ampicillin (Verified Allergy, Unknown, HIVES, 10/25/21) fluticasone (Verified Adverse Reaction, Mild, 10/25/21) salmeterol (Verified Adverse Reaction, Mild, HALLUCINATIONS, 10/25/21) Past Ebxvdgq-Xdblwg-Hkwghv Hx Patient Social History Tobacco Use?: No Smoking Status: Never a Smoker Smokeless Tobacco Frequency: Never a User Use of E-Cig and/or Vaping dev: No Use of E-Cig and/or Vaping Chris: Never a User Substance use?: No Alcohol Use?: No Pt feels they are or have been: No Immunizations Up To Date Date of Influenza Vaccine: Mar 04, 2020 First/Initial COVID19 Vaccinat: 2020 Tetanus Booster (TDap): Unknown Date of Pneumonia Vaccine: Feb 28, 2016 Seasonal Allergies Seasonal Allergies: Yes Current Status status: No Advance Directives: No Communicates: Verbally Primary Language: Iraqi Preferred Spoken Language: Iraqi Is interpretation needed?: No Sensory deficits: Vision impairment Implanted or Applied Medical D: Port-a-cath Past Medical History Surgeries: Gallbladder, Hysterectomy, Tonsillectomy Asthma Currently Using CPAP: No Currently Using BIPAP: No Heart Murmur, Hypertension CLIENT SOLUTIONS MANAGER History: Hysterectomy Sexually Transmitted Disease: No Kidney Stones Fractures Diabetes, Non-Insulin dep Loss of Vision: Bilateral Hearing Impairment: Denies Did You Recieve Any Treatments: Yes What Type of Treatment Did You: Chemotherapy, Radiation, Surgical Intervention Blood Disorders: No Adverse Reaction/Blood Tranf: No (N/A) Family Medical History No Pertinent Family Hx Review of Systems Constitutional: chills, fever EENTM: no symptoms reported Respiratory: no symptoms reported Cardiovascular: no symptoms reported Gastrointestinal: abdominal pain Genitourinary: dysuria, frequency Musculoskeletal: no symptoms reported Skin: no symptoms reported Physical Exam Physical Exam Vital Signs Vital Signs - First Documented 12/13/21 20:48 Temp 38.5 Pulse 111 Resp 19 B/P (MAP) 126/76 (93) Pulse Ox 96 O2 Delivery Room Air Capillary Refill : Less Than 3 Seconds Height, Weight, BMI Height: 5'1.00" Weight: 132lbs. 0.0oz. 59.015752rn; 25.55 BMI Method: General Appearance: No Apparent Distress, WD/WN HEENT: PERRL/EOMI, Pharynx Normal Neck: Normal Inspection, Supple Respiratory: Lungs Clear, Normal Breath Sounds, No Respiratory Distress Cardiovascular: Regular Rate, Rhythm, No Edema, No Murmur Gastrointestinal: Normal Bowel Sounds, Soft Extremity: Normal Inspection, Pedal Edema Neurologic/Psychiatric: Alert, No Motor/Sensory Deficits, Normal Mood/Affect Skin: Normal Color, Warm/Dry Results Results/Procedures Labs Laboratory Tests 12/13/21 21:20 12/14/21 05:50 Patient resulted labs reviewed. Imaging: Reviewed Imaging Report Assessment/Plan Admission Diagnosis Severe sepsis due to UTI Admission Status: Inpatient Order (span 2 midnights) Reason for Inpatient Admission: IV antibiotics and fluids Assessment and Plan Severe sepsis UTI Lactic acidosis SIRS+ with leukopenia and fever UA consistent with UTI Urine culture with gram negative stephanie Macrobid stopped IV Rocephin IV fluids T2DM Sliding scale insulin HTN COPD History of endometrial carcinoma Adenocarcinoma of the lung Hold HTN meds, normotensive at this time Continue other home meds Currently undergoing chemotherapy with Dr. Up DVT prophylaxis: Lovenox Diagnosis/Problems Diagnosis/Problems (1) Severe sepsis Status: Acute (2) UTI (urinary tract infection) Status: Acute Qualifiers: Urinary tract infection type: acute cystitis Hematuria presence: with hematuria Qualified Codes: N30.01 - Acute cystitis with hematuria (3) Lactic acidosis Status: Acute (4) T2DM (type 2 diabetes mellitus) Status: Chronic Qualifiers: Diabetes mellitus intermediate school teacher insulin use: without intermediate school teacher use Diabetes mellitus complication status: with hyperglycemia Qualified Codes: E11.65 - Type 2 diabetes mellitus with hyperglycemia (5) HTN (hypertension) Status: Chronic (6) COPD (chronic obstructive pulmonary disease) Status: Chronic (7) Adenocarcinoma of lung Status: Acute Qualifiers: Laterality: unspecified laterality Qualified Codes: C34.90 - Malignant neoplasm of unspecified part of unspecified bronchus or lung (8) Endometrial carcinoma Status: Resolved Resolution Date/Time: 12/14/21 @ 17:47 DAVID ROSENTHAL MD Dec 14, 2021 17:41
[2021-12-14] MEDS ORDERED: SORBITOL 70% 30 ML UNIT DOSE CUP PO PRN (17:45)
[2021-12-14] MEDS ORDERED: MELATONIN 3 MG TABLET PO PRN (17:45)
[2021-12-14] MEDS ORDERED: BISACODYL 10 MG SUPP (DULCOLAX) PR PRN (17:45)
[2021-12-14] MEDS ORDERED: MILK OF MAGNESIA 400 MG/5 ML 30 ML UDC PO PRN (17:45)
[2021-12-14] MEDS ORDERED: ACETAMINOPHEN 325 MG TABLET PO PRN (17:45)
[2021-12-14] MEDS ORDERED: CALCIUM CARBONATE 500 MG (TUMS) TAB.CHEW PO PRN (17:45)
[2021-12-14] MEDS ORDERED: diphenhydrAMINE 50 MG/ML INJ (BENADRYL) IVP PRN (17:45)
[2021-12-14] MEDS ORDERED: ONDANSETRON 4 MG (ZOFRAN) ORAL DISSOLVE TAB PO PRN (17:45)
[2021-12-14] MEDS ORDERED: LACTULOSE SYRUP 10GM/15ML (ENULOSE) 30ML UDC PO PRN (17:45)
[2021-12-14] MEDS ORDERED: ANTACID SUSP 30 ML UDC (MYLANTA) PO PRN (17:45)
[2021-12-14] MEDS ORDERED: diphenhydrAMINE 25 MG TAB (BENADRYL) PO PRN (17:45)
[2021-12-14] MEDS ORDERED: ENOXAPARIN 40 MG/0.4 ML (LOVENOX) SYR SC SCH (17:45)
[2021-12-14] MEDS ORDERED: cefTRIAXone 1 GM/50 ML (PRE-MIX) IV SCH (21:00)
[2021-12-14] MEDS: DOCUSATE SODIUM 100 MG (COLACE) CAP PO SCH (21:52)
[2021-12-14] MEDS: SENNOSIDES 8.6 MG (SENOKOT) TAB PO SCH (21:52)
[2021-12-14] MEDS: inSUlin ASPART (NovoLOG) 1 UNIT/0.01 ML (CHARGE PER UNIT) SC SCH (21:52)
[2021-12-15] MEDS: NS IV 1000 ML 1,000 ML IV SCH (01:32)
[2021-12-15 03:57] VITALS: BP 97/55
[2021-12-15] MEDS: inSUlin ASPART (NovoLOG) 1 UNIT/0.01 ML (CHARGE PER UNIT) SC SCH ×2 (05:40→10:52)
[2021-12-15 07:37] VITALS: BP 104/67
[2021-12-15] MEDS: SENNOSIDES 8.6 MG (SENOKOT) TAB PO SCH (08:52)
[2021-12-15] MEDS: DOCUSATE SODIUM 100 MG (COLACE) CAP PO SCH (08:53)
[2021-12-15] MEDS ORDERED: MONTELUKAST 10 MG (SINGULAIR) TAB PO SCH (09:00)
[2021-12-15] MEDS ORDERED: LORATADINE (CLARITIN) 10 MG TAB PO SCH (09:00)
[2021-12-15] MEDS ORDERED: CETIRIZINE HCL (ZYRTEC) 10 MG TAB PO SCH (09:00)
--- NOTE | 2021-12-15 09:27 | Physical Therapy Progress Note ---
Therapy Progress Note Patient up independently in room and hallway without difficulty. Declined PT intervention. no treatment rendered BI HORTON PT Dec 15, 2021 09:27
--- NOTE | 2021-12-15 10:11 | Occ Therapy Progress Note ---
Therapy Progress Note OT orders received and pt chart reviewed. Pt reports being IND in all ADLs and has no concerns upon d/c. Pt has been IND up in room, hallways, and has toileted without difficulty. D/c OT d/t pt being at PLOF and IND. No skilled OT services indicated. 1, visit PABLO DOMÍNGUEZ OT Dec 15, 2021 10:11
[2021-12-15 11:22] VITALS: BP 102/61
[2021-12-15] MEDS ORDERED: SULF1TAB38 PO (11:42)
--- NOTE | 2021-12-15 16:53 | Discharge Summary ---
Discharge Summary Hospital Course Was the Problem List Reviewed?: Yes Problems/Dx: (1) Severe sepsis Status: Acute (2) UTI (urinary tract infection) Status: Acute Qualifiers: Qualified Codes: N30.01 - Acute cystitis with hematuria (3) Lactic acidosis Status: Acute (4) T2DM (type 2 diabetes mellitus) Status: Chronic Qualifiers: Qualified Codes: E11.65 - Type 2 diabetes mellitus with hyperglycemia (5) HTN (hypertension) Status: Chronic (6) COPD (chronic obstructive pulmonary disease) Status: Chronic (7) Adenocarcinoma of lung Status: Acute Qualifiers: Qualified Codes: C34.90 - Malignant neoplasm of unspecified part of unspecified bronchus or lung (8) Endometrial carcinoma Status: Resolved Hospital Course Date of Admission: Dec 13, 2021 at 22:30 Admission Diagnosis : Severe sepsis due to UTI Family Physician/Provider: Date of Discharge: 12/15/21 Discharge Diagnosis: Severe sepsis due to UTI Hospital Course: Katie Booker is a 71 year old female with PMH HTN, COPD, T2DM, history of endometrial carcinoma, adenocarcinoma of the lung on chemotherapy, who was admitted with severe sepsis due to UTI. She had been on Macrobid as an outpatient but failed to improve. She was started on Rocephin and improved. Her urine culture grew Klebsiella oxytoca but final susceptibilities were not elaine ilable at the time of discharge. She was transitioned to Bactrim. She should follow up with Dr. Up as scheduled. She was discharged home in stable condition. Labs and Pending Lab Test: Laboratory Tests 12/14/21 20:34: Glucometer 164H 12/15/21 05:28: Glucometer 118H 12/15/21 10:34: Glucometer 133H Microbiology 12/13/21 Blood Culture - Preliminary, Resulted No growth 12/13/21 Urine Culture - Preliminary, Resulted Klebsiella oxytoca Home Meds Active Bactrim Ds Tablet (Sulfamethoxazole/Trimethoprim) 1 Each Tablet 1 Each PO BID 7 Days Reported Sorbitol (Sorbitol Solution) 70 % Solution 30 Ml PO BID PRN Glipizide 5 Mg Tablet 5 Mg PO BID Lisinopril 5 Mg Tablet 5 Mg PO DAILY Montelukast Sodium 10 Mg Tablet 10 Mg PO DAILY Zyrtec (Cetirizine HCl) 10 Mg Tablet 10 Mg PO DAILY Metformin HCl 500 Mg Tablet 500 Mg PO DAILY Assessment/Pt Instructions See instructions Discharge Planning: >30 minutes discharge planning Discharge Instructions Discharge Diet: No Restrictions Activity as Tolerated: Yes Discharge Physical Examination Vital Signs Vital Signs Date Time Temp Pulse Resp B/P (MAP) Pulse Ox O2 Delivery O2 Flow Rate FiO2 12/15/21 12:35 12/15/21 11:22 36.2 94 20 96 Room Air General Appearance: No Apparent Distress, WD/WN Respiratory: Lungs Clear, No Respiratory Distress Cardiovascular: Regular Rate, Rhythm, No Murmur Gastrointestinal: Normal Bowel Sounds, Soft Extremity: Normal Inspection, No Pedal Edema Skin: Normal Color, Warm/Dry Neurologic/Psychiatric: Alert, Normal Mood/Affect Allergies: Coded Allergies: polyethylene glycol (Unverified Allergy, Mild, HIVES, 10/25/21) ampicillin (Verified Allergy, Unknown, HIVES, 10/25/21) fluticasone (Verified Adverse Reaction, Mild, 10/25/21) salmeterol (Verified Adverse Reaction, Mild, HALLUCINATIONS, 10/25/21) Discharge Summary Date of Admission Dec 13, 2021 at 22:30 Date of Discharge Dec 15, 2021 at 12:35 Discharge Date: Dec 15, 2021 Discharge Time: 12:35 Admission Diagnosis Severe sepsis due to UTI Discharge Diagnosis Severe sepsis UTI Lactic acidosis T2DM HTN COPD History of endometrial carcinoma Adenocarcinoma of the lung (1) Severe sepsis Status: Acute (2) UTI (urinary tract infection) Status: Acute Qualifiers: Qualified Codes: N30.01 - Acute cystitis with hematuria (3) Lactic acidosis Status: Acute (4) T2DM (type 2 diabetes mellitus) Status: Chronic Qualifiers: Qualified Codes: E11.65 - Type 2 diabetes mellitus with hyperglycemia (5) HTN (hypertension) Status: Chronic (6) COPD (chronic obstructive pulmonary disease) Status: Chronic (7) Adenocarcinoma of lung Status: Acute Qualifiers: Qualified Codes: C34.90 - Malignant neoplasm of unspecified part of unspecified bronchus or lung (8) Endometrial carcinoma Status: Resolved DAVID ROSENTHAL MD Dec 15, 2021 16:53
== END 2021-12-15 12:35 | disposition home or self-care (01) ==
LOC: EDUNIT# 20:38 → ER 20:40 → 4TH 22:30
PROVIDERS: ADMIT Internal Medicine; ATTEND Internal Medicine
DX: A41.9 Sepsis, unspecified organism (principal); R65.20 Severe sepsis without septic shock; N39.0 Urinary tract infection, site not specified; E87.2 Acidosis; I10 Essential (primary) hypertension; E11.9 Type 2 diabetes mellitus without complications; J44.9 Chronic obstructive pulmonary disease, unspecified; C34.90 Malignant neoplasm of unspecified part of unspecified bronchus or lung; Z85.42 Personal history of malignant neoplasm of other parts of uterus; Z20.822 Contact with and (suspected) exposure to COVID-19; Z88.0 Allergy status to penicillin; Z88.8 Allergy status to other drugs, medicaments and biological substances; Z79.84 Long term (current) use of oral hypoglycemic drugs
CPT/HCPCS: 36415; 71045; 80048; 80053; 81000; 82947; 83605; 83690; 85025; 85610; 85730; 87040; 87077; 87088; 87636; 93005; 96361; 96372; 96376

== ENCOUNTER 2022-02-16 09:52 | Inpatient (IN) | payer MEDICARE, OTHER ==
[~2022-02-16] VITALS: Ht 154 cm; Wt 57.0 kg
[~2022-02-16 09:52] MED LIST changes: +GLIP5TAB13 PO; +LISI5TAB20 PO; -MONT4TAB17 PO; +MONT4TAB19 PO; +NITR100C PO; +SORB1SOL2 PO; +SULF1TAB38 PO
[2022-02-16] MEDS ORDERED: ACETAMINOPHEN 500 MG TAB (TYLENOL) ONE (10:12)
[2022-02-16] MEDS ORDERED: ACETAMINOPHEN 500 MG TAB (TYLENOL) PO ONE (10:15)
--- NOTE | 2022-02-16 10:56 | ED General ---
General Chief Complaint: General Problems/Pain Stated Complaint: WEAKNESS,SOB,FEVER Nursing Triage Note: PT AMB TO RM 5 CO OF FEVER AND SOA. PT HAS HX OF LUNG CA. PT STATES FINISHED CHEMO TX ON 01/07. PT STATES HAS HAD FEVER FOR 2 DAYS Source of Information: Patient Exam Limitations: No Limitations History of Present Illness Date Seen by Provider: Feb 16, 2022 Time Seen by Provider: 10:25 Initial Comments Here with report of fever and shortness of air since yesterday. Does have mild cough but not significantly different. Denies sore throat or runny nose. Denies dysuria or diarrhea. She does have lung cancer with at least 3 lesions in has had chemo with last dose early January. She is scheduled for radiation later this week for the lesions. She is vaccinated for COVID and has no known sick contacts. She was on Medrol Dosepak last week for allergies that she typically suffers from twice a year. Follows with Dr. Odell. Timing/Duration: 12-24 Hours Severity: Mild Associated Systoms: No Chest Pain; Cough, Fever/Chills; No Nausea/Vomiting; Shortness of Air, Weakness Allergies and Home Medications Allergies Coded Allergies: polyethylene glycol (Unverified Allergy, Mild, HIVES, 10/25/21) ampicillin (Verified Allergy, Unknown, HIVES, 10/25/21) fluticasone (Verified Adverse Reaction, Mild, 10/25/21) salmeterol (Verified Adverse Reaction, Mild, HALLUCINATIONS, 10/25/21) Patient Home Medication List Home Medication List Reviewed: Yes Cetirizine HCl (Zyrtec) 10 Mg Tablet, 10 MG PO DAILY, (Reported) Entered as Reported by: LORENZO ALAS on 09/15/21 0820 Glipizide (Glipizide) 5 Mg Tablet, 5 MG PO BID, (Reported) Entered as Reported by: GUERO WETZEL on 12/14/21 1448 Lisinopril (Lisinopril) 5 Mg Tablet, 5 MG PO DAILY, (Reported) Entered as Reported by: GUERO WETZEL on 12/14/21 1448 Metformin HCl (Metformin HCl) 500 Mg Tablet, 500 MG PO DAILY, (Reported) Entered as Reported by: MARCIN LUNDBERG on 06/21/20 1207 Montelukast Sodium (Montelukast Sodium) 10 Mg Tablet, 10 MG PO DAILY, (Reported) Entered as Reported by: LETICIA LU on 10/25/21 1045 Sorbitol Solution (Sorbitol) 70 % Solution, 30 ML PO BID PRN for CONSTIPATION, (Reported) Entered as Reported by: GUERO WETZEL on 12/14/21 1448 Sulfamethoxazole/Trimethoprim (Bactrim Ds Tablet) 1 Each Tablet, 1 EACH PO BID Prescribed by: DAVID ROSENTHAL on 12/15/21 1142 Review of Systems Review of Systems Constitutional: see HPI; No chills; fever, malaise EENTM: No nose congestion, No throat pain Respiratory: cough, short of breath Cardiovascular: no symptoms reported Gastrointestinal: No nausea, No vomiting Genitourinary: no symptoms reported All Other Systems Reviewed Negative Unless Noted: Yes Past Ycnrgib-Oikmdc-Lazlia Hx Patient Social History Tobacco Use?: No Substance use?: No Alcohol Use?: No Pt feels they are or have been: No Immunizations Up To Date Tetanus Booster (TDap): Unknown First/Initial COVID19 Vaccinat: 2020 COVID19 Vaccine Calibration Engineer: GISELL Seasonal Allergies Seasonal Allergies: Yes Past Medical History Surgery/Hospitalization HX: LUNG CANCER, DM 2, HTN COMPLETE HYSTERECTOMY, TONSIL, BABAR Surgeries: Yes (RT THUMB SX, several kidney stone sx ) Gallbladder, Hysterectomy, Tonsillectomy Respiratory: Yes (ventolin used for allergy induced asthma) Asthma Currently Using CPAP: No Currently Using BIPAP: No Cardiac: Yes Heart Murmur, Hypertension Neurological: No Reproductive Disorders: 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 Sexually Transmitted Disease: No Genitourinary: Yes Kidney Stones Gastrointestinal: No Musculoskeletal: Yes (right thumb) Fractures Endocrine: Yes Diabetes, Non-Insulin dep HEENT: No Loss of Vision: Bilateral Hearing Impairment: Denies Cancer: Yes (ENDOMETRIAL CA) Did You Recieve Any Treatments: Yes What Type of Treatment Did You: Chemotherapy, Radiation, Surgical Intervention Psychosocial: No Integumentary: No Blood Disorders: No Adverse Reaction/Blood Tranf: No (N/A) Family Medical History Reviewed Nursing Family Hx No Pertinent Family Hx Physical Exam-Suspected Sepsis Physical Exam Vital Signs Vital Signs - First Documented 02/16/22 10:20 Temp 38.8 Pulse 122 Resp 21 B/P (MAP) 116/71 (86) Pulse Ox 100 O2 Delivery Room Air Capillary Refill : Less Than 3 Seconds Blood Pressure Mean: 86 Height, Weight, BMI Height: 5'1.00" Weight: 132lbs. 0.0oz. [id number]; 24.00 BMI Method: General Appearance: No Apparent Distress, WD/WN HEENT: PERRL/EOMI, Pharynx Normal Neck: Non Tender, Supple Respiratory: Lungs Clear, Normal Breath Sounds Cardiovascular: Systolic Murmur, Tachycardia Gastrointestinal: Non Tender, Soft Back: Normal Inspection, No CVA Tenderness, No Vertebral Tenderness Extremity: Normal Range of Motion, Non Tender Neurologic/Psychiatric: Alert, Oriented x3 Skin: normal color, warm/dry Focused Exam Lactate Level 02/16/22 10:11: Lactic Acid Level 2.47*H 02/16/22 16:00: Lactic Acid Level 1.59 Lactic Acid Level Laboratory Tests Test 02/16/22 16:00 Lactic Acid Level 1.59 MMOL/L (0.50-2.00) Progress/Results/Core Measures Suspected Sepsis SIRS Temperature: Pulse: 122 Respiratory Rate: 21 Laboratory Tests 02/16/22 10:11: White Blood Count 12.8H Blood Pressure 116 /71 Mean: 86 02/16/22 10:11: Lactic Acid Level 2.47*H 02/16/22 16:00: Lactic Acid Level 1.59 Laboratory Tests 02/16/22 10:11: Creatinine 1.45H, INR Comment 1.1, Platelet Count 183, Total Bilirubin 0.7 Results/Orders Lab Results Laboratory Tests Test 02/16/22 10:11 02/16/22 11:52 02/16/22 16:00 Range/Units White Blood Count 12.8 H 4.3-11.0 10^3/uL Red Blood Count 3.28 L 3.80-5.11 10^6/uL Hemoglobin 10.0 L 11.5-16.0 g/dL Hematocrit 31 L 35-52 % Mean Corpuscular Volume 95 80-99 fL Mean Corpuscular Hemoglobin 31 25-34 pg Mean Corpuscular Hemoglobin Concent 32 32-36 g/dL Red Cell Distribution Width 16.4 H 10.0-14.5 % Platelet Count 183 130-400 10^3/uL Mean Platelet Volume 13.0 H 9.0-12.2 fL Immature Granulocyte % (Auto) 1 % Neutrophils (%) (Auto) 82 H 42-75 % Lymphocytes (%) (Auto) 5 L 12-44 % Monocytes (%) (Auto) 12 0-12 % Eosinophils (%) (Auto) 0 0-10 % Basophils (%) (Auto) 0 0-10 % Neutrophils # (Auto) 10.5 H 1.8-7.8 10^3/uL Lymphocytes # (Auto) 0.6 L 1.0-4.0 10^3/uL Monocytes # (Auto) 1.6 H 0.0-1.0 10^3/uL Eosinophils # (Auto) 0.0 0.0-0.3 10^3/uL Basophils # (Auto) 0.0 0.0-0.1 10^3/uL Immature Granulocyte # (Auto) 0.1 0.0-0.1 10^3/uL Neutrophils % (Manual) 86 % Lymphocytes % (Manual) 5 % Monocytes % (Manual) 9 % Eosinophils % (Manual) 0 % Basophils % (Manual) 0 % Band Neutrophils 0 % Anisocytosis SLIGHT Prothrombin Time 14.3 12.2-14.7 SEC INR Comment 1.1 0.8-1.4 Activated Partial Thromboplast Time 29 24-35 SEC Sodium Level 137 135-145 MMOL/L Potassium Level 3.9 3.6-5.0 MMOL/L Chloride Level 102 98-107 MMOL/L Carbon Dioxide Level 19 L 21-32 MMOL/L Anion Gap 16 H 5-14 MMOL/L Blood Urea Nitrogen 25 H 7-18 MG/DL Creatinine 1.45 H 0.60-1.30 MG/DL Estimat Glomerular Filtration Rate 39 BUN/Creatinine Ratio 17 Glucose Level 292 H 70-105 MG/DL Lactic Acid Level 2.47 *H 1.59 0.50-2.00 MMOL/L Calcium Level 9.2 8.5-10.1 MG/DL Corrected Calcium 9.4 8.5-10.1 MG/DL Total Bilirubin 0.7 0.1-1.0 MG/DL Aspartate Amino Transf (AST/SGOT) 11 5-34 U/L Alanine Aminotransferase (ALT/SGPT) 12 0-55 U/L Alkaline Phosphatase 68 40-136 U/L C-Reactive Protein High Sensitivity 13.82 H 0.00-0.50 MG/DL Total Protein 7.6 6.4-8.2 GM/DL Albumin 3.7 3.2-4.5 GM/DL Procalcitonin 0.20 H <0.10 NG/ML Influenza Type A (RT-PCR) Not Detected Not Detecte Influenza Type B (RT-PCR) Not Detected Not Detecte SARS-CoV-2 RNA (RT-PCR) Not Detected Not Detecte Urine Color YELLOW Urine Clarity CLOUDY Urine pH 6.0 5-9 Urine Specific [place] 1.015 L 1.016-1.022 Urine Protein 1+ H NEGATIVE Urine Glucose (UA) NEGATIVE NEGATIVE Urine Ketones TRACE H NEGATIVE Urine Nitrite POSITIVE H NEGATIVE Urine Bilirubin 1+ H NEGATIVE Urine Urobilinogen 1 < = 1.0 MG/DL Urine Leukocyte Esterase 2+ H NEGATIVE Urine RBC (Auto) 3+ H NEGATIVE Urine RBC 2-5 H /HPF Urine WBC TNTC H /HPF Urine Squamous Epithelial Cells NONE /HPF Urine Crystals NONE /LPF Urine Bacteria MODERATE H /HPF Urine Casts NONE /LPF Urine Mucus NEGATIVE /LPF Urine Culture Indicated CULTURE PENDING My Orders Orders - STARLA SEALS MD Acetaminophen Tablet (Tylenol Tablet) (02/16/22 10:12) Acetaminophen Tablet (Tylenol Tablet) (02/16/22 10:15) Cbc With Automated Diff (02/16/22 10:49) Comprehensive Metabolic Panel (02/16/22 10:49) Blood Culture (02/16/22 10:49) Sputum Culture (02/16/22 10:49) Urinalysis (02/16/22 10:49) Urine Culture (02/16/22 10:49) Protime With Inr (02/16/22 10:49) Partial Thromboplastin Time (02/16/22 10:49) Chest 1 View, Ap/Pa Only (02/16/22 10:49) Ed Iv/Invasive Line Start (02/16/22 10:49) Ed Iv/Invasive Line Start (02/16/22 10:49) Vital Signs Adult Sepsis Patie Q15M (02/16/22 10:49) O2 (02/16/22 10:49) Remove Rings In Anticipation O (02/16/22 10:49) Lactic Acid Analyzer (02/16/22 10:49) Ns Iv 500 Ml (Sodium Chloride 0.9%) (02/16/22 11:00) Hs C Reactive Protein (02/16/22 10:52) Manual Differential (02/16/22 10:11) Covid 19 Inhouse Test (02/16/22 11:18) Influenza A And B By Pcr (02/16/22 11:18) Ceftriaxone 1 Gm Pre-Mix (Rocephin 1 Gm (02/16/22 12:51) General/Regular (02/16/22 Lunch) Ed Admission (Communication) (02/16/22 13:42) Ibuprofen Tablet (Motrin Tablet) (02/16/22 15:45) Medications Given in ED Current Medications Medications Dose Ordered Sig/Randy Route Start Time Stop Time Status Last Admin Dose Admin Acetaminophen 1,000 mg ONCE ONCE PO 02/16/22 10:15 02/16/22 10:17 DC 02/16/22 10:17 1,000 MG Sodium Chloride 500 ml @ 0 mls/hr Q0M ONCE IV 02/16/22 11:00 02/16/22 11:01 DC 02/16/22 11:56 500 MLS/HR Vital Signs/I&O 02/16/22 02/16/22 02/16/22 02/16/22 10:20 15:03 16:13 17:38 Temp 38.8 39.3 40.1 Pulse 122 121 124 Resp 21 18 18 B/P (MAP) 116/71 (86) 118/58 112/69 (83) Pulse Ox 100 98 93 O2 Delivery Room Air Room Air Room Air Capillary Refill : Less Than 3 Seconds Blood Pressure Mean: 86 Progress Note : Progress Note Seen and evaluated. Sepsis protocol initiated. We will go ahead and get COVID and influenza screen as well. Normal saline 500 mL bolus and Tylenol 1 g p.o. ordered. Monitor patient. 1330: Rocephin 1 g IV ordered for UTI noted. Patient does have lactic acidosis. She does live over an hour away. She has un derlying condition of lung cancer but has not had chemotherapy for over a month. She is set up for radiation therapy next week. 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 This was discussed with the patient's oncologist who agreed. I did discuss the case with the hospitalist team, Dr. Rosenthal, who is excepted the patient for admission, inpatient status. Patient and family agree with plan. Diagnostic Imaging Diagonstic Imaging: Xray Plain Films/CT/US/NM/MRI: chest Comments [facility] [place], [place] NAME: RANDAL CASE [facility] REC#: [id number] PT STATUS: REG ER : 1950 PHYSICIAN: STARLA SEALS MD ADMIT DATE: 02/16/22/ER Signed Date of Exam:02/16/22 CHEST 1 VIEW, AP/PA ONLY CHEST 1 VIEW, AP/PA ONLY Indication: Fever Comparison: 12/13/2021 Findings: No focal airspace disease in the visualized lungs. Please note that the posterior lower lobes are poorly evaluated by portable radiography. No pleural effusion or pneumothorax. Normal cardiomediastinal silhouette. Stable right IJ Port-A-Cath. Impression: 1. No acute cardiopulmonary process by portable radiography. Dictated by: Dictated on workstation # [id number] Dict: 02/16/22 1219 Trans: 02/16/22 1220 [facility] [id number] Interpreted by: ONEAL KAISER MD Electronically signed by: ONEAL KAISER MD 02/16/22 1220 Departure Communication (Admissions) Time/Spoke to Admitting Phy: 13:30 Impression Primary Impression: UTI (urinary tract infection) Qualified Codes: N30.00 - Acute cystitis without hematuria Additional Impression: Sepsis Qualified Codes: A41.9 - Sepsis, unspecified organism Disposition: ADMITTED INPATIENT Condition: Stable Admissions Decision to Admit Reason: Admit from ER (General) Decision to Admit/Date: Feb 16, 2022 Time/Decision to Admit Time: 13:30 Departure-Patient Inst. Referrals: LETICIA VAZQUEZ MD (PCP/Family) Primary Care Physician STARLA SEALS MD Feb 16, 2022 10:56
[2022-02-16] MEDS ORDERED: NS IV 500 ML 500 ML IV ONE (11:00)
[2022-02-16 11:03] LABS: BASOPHILS % (AUTO) 0 % (0-10); EOSINOPHILS % (AUTO) 0 % (0-10); HEMATOCRIT 31 % (35-52); LYMPHOCYTES # (AUTO) 0.6 10^3/uL (1.0-4.0); LYMPHOCYTES % (AUTO) 5 % (12-44); MEAN CORPUSCULAR HEMOGLOBIN 31 pg (25-34); MEAN CORPUSCULAR HGB CONC 32 g/dL (32-36); MEAN CORPUSCULAR VOLUME 95 fL (80-99); MONOCYTES # (AUTO) 1.6 10^3/uL (0.0-1.0); MONOCYTES % (AUTO) 12 % (0-12); NEUTROPHILS # (AUTO) 10.5 10^3/uL (1.8-7.8); NEUTROPHILS % (AUTO) 82 % (42-75); PLATELET COUNT 183 10^3/uL (130-400); WHITE BLOOD COUNT 12.8 10^3/uL (4.3-11.0)
[2022-02-16 11:08] LABS: ALBUMIN 3.7 GM/DL (3.2-4.5); INR 1.1 (0.8-1.4); POTASSIUM 3.9 MMOL/L (3.6-5.0); PROTHROMBIN TIME PATIENT 14.3 SEC (12.2-14.7)
[2022-02-16 11:10] LABS: CALCIUM 9.2 MG/DL (8.5-10.1)
[2022-02-16 11:11] LABS: TOTAL PROTEIN 7.6 GM/DL (6.4-8.2)
[2022-02-16 11:13] LABS: BILIRUBIN,TOTAL 0.7 MG/DL (0.1-1.0)
[2022-02-16 11:15] LABS: CREATININE SERUM 1.45 MG/DL (0.60-1.30)
[2022-02-16 11:42] LABS: ANISOCYTOSIS SLIGHT; BAND NEUTROPHILS 0 %; BASOPHILS % (MANUAL) 0 %; EOSINOPHILS % (MANUAL) 0 %; LYMPHOCYTES % (MANUAL) 5 %; MONOCYTES % (MANUAL) 9 %; NEUTROPHILS % (MANUAL) 86 %
[2022-02-16 12:16] LABS: CLARITY,URINE CLOUDY; COLOR,URINE YELLOW
[2022-02-16 12:21] LABS: GLUCOSE, URINE (UA) NEGATIVE (NEGATIVE); KETONES,URINE TRACE (NEGATIVE); PROTEIN,URINE 1+ (NEGATIVE)
--- NOTE | 2022-02-16 12:21 | Diagnostic Imaging Report ---
CHEST 1 VIEW, AP/PA ONLY Indication: Fever Comparison: 12/13/2021 Findings: No focal airspace disease in the visualized lungs. Please note that the posterior lower lobes are poorly evaluated by portable radiography. No pleural effusion or pneumothorax. Normal cardiomediastinal silhouette. Stable right IJ Port-A-Cath. Impression: 1. No acute cardiopulmonary process by portable radiography. Dictated by: Dictated on workstation # [id number]
[2022-02-16 12:29] LABS: NITRITE,URINE POSITIVE (NEGATIVE)
[2022-02-16 12:32] LABS: LEUKOCYTE ESTERASE ,URINE 2+ (NEGATIVE)
[2022-02-16 12:35] LABS: BACTERIA,URINE MODERATE /HPF; BILIRUBIN,URINE 1+ (NEGATIVE); WBC,URINE TNTC /HPF
[2022-02-16] MEDS ORDERED: cefTRIAXone 1 GM PRE-MIX 50 ML IV STA (12:51)
[2022-02-16] MEDS ORDERED: IBUPROFEN 600 MG (MOTRIN) TAB PO ONE ×2 (15:31→15:45)
[2022-02-16 16:13] VITALS: BP 112/69
[2022-02-16] MEDS ORDERED: MELATONIN 3 MG TABLET PO PRN (16:15)
[2022-02-16] MEDS ORDERED: LACTULOSE SYRUP 10GM/15ML (ENULOSE) 30ML UDC PO PRN (16:15)
[2022-02-16] MEDS ORDERED: ENOXAPARIN INJECTION 30 MG/0.3 ML SYR SC SCH (16:15)
[2022-02-16] MEDS ORDERED: ENOXAPARIN 40 MG/0.4 ML (LOVENOX) SYR SC SCH (16:15)
[2022-02-16] MEDS ORDERED: MILK OF MAGNESIA 400 MG/5 ML 30 ML UDC PO PRN (16:15)
[2022-02-16] MEDS ORDERED: diphenhydrAMINE 50 MG/ML INJ (BENADRYL) IVP PRN (16:15)
[2022-02-16] MEDS ORDERED: CALCIUM CARBONATE 500 MG (TUMS) TAB.CHEW PO PRN (16:15)
[2022-02-16] MEDS ORDERED: ONDANSETRON 4 MG (ZOFRAN) ORAL DISSOLVE TAB PO PRN (16:15)
[2022-02-16] MEDS ORDERED: NS IV 1000 ML 1,000 ML IV ONE (16:15)
[2022-02-16] MEDS ORDERED: ONDANSETRON 4 MG/2 ML (SDV) Z0FRAN IV PRN ×2 (16:15)
[2022-02-16] MEDS ORDERED: ACETAMINOPHEN 325 MG TABLET PO PRN (16:15)
[2022-02-16] MEDS ORDERED: diphenhydrAMINE 25 MG TAB (BENADRYL) PO PRN (16:15)
[2022-02-16] MEDS ORDERED: BISACODYL 10 MG SUPP (DULCOLAX) PR PRN (16:15)
[2022-02-16] MEDS ORDERED: ANTACID SUSP 30 ML UDC (MYLANTA) PO PRN (16:15)
--- NOTE | 2022-02-16 16:42 | History & Physical-Hospitalist ---
History of Present Illness HPI/Chief Complaint Katie Booker is a 72 year old female with PMH HTN, T2DM, history of endometrial cancer, lung cancer s/p chemotherapy planning to undergo radiation, who presented with fever. She has also felt dizzy and weak. She reports shortness of breath. She denies abdominal pain. She denies nausea and vomiting. She denies dysuria and frequency. She reports some urgency. She denies chest pain. She denies cough. She denies rash. Source: patient Exam Limitations: no limitations Date Seen 02/16/22 Time Seen by a Provider: 16:30 Attending Physician Mia Pereira MD PCP Admitting Physician: David Rosenthal MD Attending Physician: David Rosenthal MD Referring Physician Date of Admission Feb 16, 2022 at 14:17 Home Medications & Allergies Home Medications Reviewed patient Home Medication Reconciliation performed by pharmacy medication reconciliations surveillance technician and/or nursing. Patients Allergies have been reviewed. Allergies Allergies Coded Allergies polyethylene glycol (Unverified Allergy, Mild, HIVES, 10/25/21) ampicillin (Verified Allergy, Unknown, HIVES, 10/25/21) fluticasone (Verified Adverse Reaction, Mild, 10/25/21) salmeterol (Verified Adverse Reaction, Mild, HALLUCINATIONS, 10/25/21) Past Kcgydfn-Bvocuw-Nvfhsn Hx Patient Social History Tobacco Use?: No Substance use?: No Alcohol Use?: No Pt feels they are or have been: No Immunizations Up To Date Date of Influenza Vaccine: Mar 04, 2020 First/Initial COVID19 Vaccinat: 2020 Tetanus Booster (TDap): Unknown Date of Pneumonia Vaccine: Feb 28, 2016 Seasonal Allergies Seasonal Allergies: Yes Current Status Advance Directives: No Communicates: Verbally Primary Language: Estonian Preferred Spoken Language: Estonian Is interpretation needed?: No Implanted or Applied Medical D: Port-a-cath Past Medical History Surgeries: Gallbladder, Hysterectomy, Tonsillectomy Asthma Currently Using CPAP: No Currently Using BIPAP: No Heart Murmur, 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 Sexually Transmitted Disease: No Kidney Stones Fractures Diabetes, Non-Insulin dep Loss of Vision: Bilateral Hearing Impairment: Denies Did You Recieve Any Treatments: Yes What Type of Treatment Did You: Chemotherapy, Radiation, Surgical Intervention Blood Disorders: No Adverse Reaction/Blood Tranf: No (N/A) Family Medical History Reviewed Nursing Family Hx No Pertinent Family Hx Review of Systems Constitutional: chills, dizziness, fever, malaise, weakness EENTM: no symptoms reported Respiratory: short of breath Cardiovascular: no symptoms reported Gastrointestinal: no symptoms reported Physical Exam Physical Exam Vital Signs Vital Signs - First Documented 02/16/22 10:20 Temp 38.8 Pulse 122 Resp 21 B/P (MAP) 116/71 (86) Pulse Ox 100 O2 Delivery Room Air Capillary Refill : Less Than 3 Seconds Height, Weight, BMI Height: 5'1.00" Weight: 132lbs. 0.0oz. 59.887549vf; 24.00 BMI Method: General Appearance: No Apparent Distress, Chronically ill HEENT: PERRL/EOMI, Pharynx Normal Neck: Normal Inspection, Supple Respiratory: Lungs Clear, Normal Breath Sounds, No Respiratory Distress Cardiovascular: No Murmur, Tachycardia Gastrointestinal: Normal Bowel Sounds, Non Tender, Soft Extremity: Normal Inspection, Non Tender, No Pedal Edema Neurologic/Psychiatric: Alert, Oriented x3, Normal Mood/Affect Skin: Normal Color, Warm/Dry Results Results/Procedures Labs Laboratory Tests 02/16/22 10:11 Patient resulted labs reviewed. Imaging: Reviewed Imaging Report Assessment/Plan Admission Diagnosis Severe sepsis Admission Status: Inpatient Order (span 2 midnights) Reason for Inpatient Admission: IV fluids and antibiotics Assessment and Plan Severe sepsis UTI Lactic acidosis SHAQUILLE UA consistent with UTI Lactic acid and creatinine elevated IV fluids IV Rocephin Lung cancer History of endometrial cancer Clinically significant, no acute management needs T2DM Sliding scale insulin HTN Hold antihypertensives DVT prophylaxis: Lovenox Diagnosis/Problems Diagnosis/Problems (1) Severe sepsis Status: Acute (2) UTI (urinary tract infection) Status: Acute Qualifiers: Urinary tract infection type: acute cystitis Hematuria presence: without hematuria Qualified Codes: N30.00 - Acute cystitis without hematuria (3) SHAQUILLE (acute kidney injury) Status: Acute (4) Lactic acidosis Status: Acute (5) Adenocarcinoma of lung Status: Acute (6) Endometrial carcinoma Status: Resolved Resolution Date/Time: 12/14/21 @ 17:47 (7) HTN (hypertension) Status: Chronic Qualifiers: Hypertension type: primary hypertension Qualified Codes: I10 - Essential (primary) hypertension (8) T2DM (type 2 diabetes mellitus) Status: Chronic Qualifiers: Diabetes mellitus terminal manager insulin use: without terminal manager use Diabetes mellitus complication status: without complication Qualified Codes: E11.9 - Type 2 diabetes mellitus without complications DAVID ROSENTHAL MD Feb 16, 2022 16:42
[2022-02-16] MEDS ORDERED: NS IV 1000 ML 1,000 ML IV SCH (16:45)
[2022-02-16 19:24] VITALS: BP 88/52
[2022-02-16] MEDS: inSUlin ASPART (NovoLOG) 1 UNIT/0.01 ML (CHARGE PER UNIT) SC SCH (20:36)
[2022-02-16] MEDS: SENNOSIDES 8.6 MG (SENOKOT) TAB PO SCH (20:36)
[2022-02-16] MEDS: DOCUSATE SODIUM 100 MG (COLACE) CAP PO SCH (20:36)
[2022-02-16 23:22] VITALS: BP 103/58
[2022-02-17 04:03] VITALS: BP 93/59
[2022-02-17] MEDS: inSUlin ASPART (NovoLOG) 1 UNIT/0.01 ML (CHARGE PER UNIT) SC SCH ×2 (05:35→11:22)
[2022-02-17 05:50] LABS: BASOPHILS % (AUTO) 0 % (0-10); EOSINOPHILS % (AUTO) 0 % (0-10); HEMATOCRIT 24 % (35-52); HEMOGLOBIN 7.9 g/dL (11.5-16.0); LYMPHOCYTES # (AUTO) 0.7 10^3/uL (1.0-4.0); LYMPHOCYTES % (AUTO) 4 % (12-44); MEAN CORPUSCULAR HEMOGLOBIN 31 pg (25-34); MEAN CORPUSCULAR HGB CONC 33 g/dL (32-36); MEAN CORPUSCULAR VOLUME 95 fL (80-99); MEAN PLATELET VOLUME 12.4 fL (9.0-12.2); MONOCYTES # (AUTO) 1.8 10^3/uL (0.0-1.0); MONOCYTES % (AUTO) 10 % (0-12); NEUTROPHILS # (AUTO) 16.2 10^3/uL (1.8-7.8); NEUTROPHILS % (AUTO) 85 % (42-75); PLATELET COUNT 138 10^3/uL (130-400)
[2022-02-17 06:06] LABS: CALCIUM 7.7 MG/DL (8.5-10.1); CREATININE SERUM 1.26 MG/DL (0.60-1.30); POTASSIUM 3.4 MMOL/L (3.6-5.0)
[2022-02-17 06:12] LABS: ANISOCYTOSIS SLIGHT; BAND NEUTROPHILS 9 %; LYMPHOCYTES % (MANUAL) 1 %; MONOCYTES % (MANUAL) 6 %; NEUTROPHILS % (MANUAL) 84 %
[2022-02-17] MEDS: DOCUSATE SODIUM 100 MG (COLACE) CAP PO SCH (08:05)
[2022-02-17] MEDS: SENNOSIDES 8.6 MG (SENOKOT) TAB PO SCH (08:05)
[2022-02-17 08:56] VITALS: BP 94/56
[2022-02-17] MEDS ORDERED: DIPH25TA65 PO (10:15)
[2022-02-17] MEDS ORDERED: CALC-140 PO (10:15)
[2022-02-17 11:57] VITALS: BP 99/58
[2022-02-17] MEDS ORDERED: cefTRIAXone 1 GM PRE-MIX 50 ML IV SCH (12:00)
[2022-02-17] MEDS ORDERED: SULF1TAB38 PO (13:58)
[2022-02-17 15:08] VITALS: BP 99/58
--- NOTE | 2022-02-17 22:04 | Discharge Summary ---
Discharge Summary Hospital Course Problems/Dx: (1) Severe sepsis Status: Acute (2) UTI (urinary tract infection) Status: Acute Qualifiers: Qualified Codes: N30.00 - Acute cystitis without hematuria (3) SHAQUILLE (acute kidney injury) Status: Acute (4) Lactic acidosis Status: Acute (5) Adenocarcinoma of lung Status: Acute (6) Endometrial carcinoma Status: Resolved (7) HTN (hypertension) Status: Chronic Qualifiers: Qualified Codes: I10 - Essential (primary) hypertension (8) T2DM (type 2 diabetes mellitus) Status: Chronic Qualifiers: Qualified Codes: E11.9 - Type 2 diabetes mellitus without complications Hospital Course Date of Admission: Feb 16, 2022 at 14:17 Admission Diagnosis : Severe sepsis due to UTI Family Physician/Provider: Mia Pereira MD Date of Discharge: 02/17/22 Discharge Diagnosis: Severe sepsis due to E coli UTI Hospital Course: Katie Booker is a 72 year old female with lung cancer who was admitted with severe sepsis due to UTI. She was treated with IV Rocephin and improved quickly. She was transitioned to oral Bactrim. She also had an SHAQUILLE which responded well to IV fluids. She was discharged home in stable conditon. She should follow up with her PCP and Oncology. Labs and Pending Lab Test: Laboratory Tests 02/17/22 05:26: Glucometer 222H 02/17/22 05:40: White Blood Count 19.0H, Red Blood Count 2.56L, Hemoglobin 7.9#L, Hematocrit 24L , Mean Corpuscular Volume 95, Mean Corpuscular Hemoglobin 31, Mean Corpuscular Hemoglobin Concent 33, Red Cell Distribution Width 16.2H, Platelet Count 138, Mean Platelet Volume 12.4H, Immature Granulocyte % (Auto) 1, Neutrophils (%) (Auto) 85H, Lymphocytes (%) (Auto) 4L, Monocytes (%) (Auto) 10, Eosinophils (%) (Auto) 0, Basophils (%) (Auto) 0, Neutrophils # (Auto) 16.2H, Lymphocytes # (Auto) 0.7L, Monocytes # (Auto) 1.8H, Eosinophils # (Auto) 0.0, Basophils # (Auto) 0.0, Immature Granulocyte # (Auto) 0.3H, Neutrophils % (Manual) 84, Lymphocytes % (Manual) 1, Monocytes % (Manual) 6, Band Neutrophils 9, Anisocytosis SLIGHT, Sodium Level 139, Potassium Level 3.4L, Chloride Level 109H , Carbon Dioxide Level 18L, Anion Gap 12, Blood Urea Nitrogen 22H, Creatinine 1.26, Estimat Glomerular Filtration Rate 46, BUN/Creatinine Ratio 17, Glucose Level 230H, Calcium Level 7.7L 02/17/22 11:17: Glucometer 121H Microbiology 02/16/22 Urine Culture - Preliminary, Resulted Escherichia coli 02/16/22 Blood Culture - Preliminary, Resulted No growth Home Meds Active Bactrim Ds Tablet (Sulfamethoxazole/Trimethoprim) 1 Each Tablet 1 Each PO BID 7 Days Reported Calcium + Vitamin D Tablet (Calcium Carbonate/Vitamin D3) 600 Mg Calcium-5 Mcg (200 Unit) Tablet 1 Each PO DAILY Benadryl Allergy (Diphenhydramine HCl) 25 Mg Tablet 25-50 Mg PO Q6H PRN Glipizide 5 Mg Tablet 5 Mg PO BID PRN Lisinopril 5 Mg Tablet 5 Mg PO DAILY LAST FILLED 11-15-2021 #30/ DAY SUPPLY Montelukast Sodium 10 Mg Tablet 10 Mg PO DAILY Zyrtec (Cetirizine HCl) 10 Mg Tablet 10 Mg PO DAILY Metformin HCl 500 Mg Tablet 500 Mg PO DAILY Assessment/Pt Instructions See instructions Discharge Planning: <30 minutes discharge planning Discharge Instructions Discharge Diet: No Restrictions Activity as Tolerated: Yes Discharge Physical Examination Vital Signs Vital Signs Date Time Temp Pulse Resp B/P (MAP) Pulse Ox O2 Delivery O2 Flow Rate FiO2 02/17/22 15:08 36.1 94 19 99/58 99 Room Air General Appearance: No Apparent Distress, WD/WN Respiratory: Lungs Clear, No Respiratory Distress Cardiovascular: Regular Rate, Rhythm, No Murmur Gastrointestinal: Normal Bowel Sounds, Soft Extremity: Normal Inspection, No Pedal Edema Skin: Normal Color, Warm/Dry Neurologic/Psychiatric: Alert, Normal Mood/Affect Allergies: Coded Allergies: polyethylene glycol (Unverified Allergy, Mild, HIVES, 10/25/21) ampicillin (Verified Allergy, Unknown, HIVES, 10/25/21) fluticasone (Verified Adverse Reaction, Mild, 10/25/21) salmeterol (Verified Adverse Reaction, Mild, HALLUCINATIONS, 10/25/21) Discharge Summary Date of Admission Feb 16, 2022 at 14:17 Date of Discharge Feb 17, 2022 at 15:05 Discharge Date: Feb 17, 2022 Discharge Time: 15:05 Admission Diagnosis Severe sepsis Discharge Diagnosis Severe sepsis UTI Lactic acidosis SHAQUILLE Lung cancer History of endometrial cancer (1) Severe sepsis Status: Acute (2) UTI (urinary tract infection) Status: Acute Qualifiers: Qualified Codes: N30.00 - Acute cystitis without hematuria (3) SHAQUILLE (acute kidney injury) Status: Acute (4) Lactic acidosis Status: Acute (5) Adenocarcinoma of lung Status: Acute (6) Endometrial carcinoma Status: Resolved (7) HTN (hypertension) Status: Chronic Qualifiers: Qualified Codes: I10 - Essential (primary) hypertension (8) T2DM (type 2 diabetes mellitus) Status: Chronic Qualifiers: Qualified Codes: E11.9 - Type 2 diabetes mellitus without complications DAVID ROSENTHAL MD Feb 17, 2022 22:03
== END 2022-02-17 15:05 | disposition home or self-care (01) | DRG 872 ==
LOC: EDUNIT# 09:52 → ER 09:54 → 4TH 14:17
PROVIDERS: ADMIT Internal Medicine; ATTEND Internal Medicine
DX: A41.9 Sepsis, unspecified organism (principal); N39.0 Urinary tract infection, site not specified; N17.9 Acute kidney failure, unspecified; C34.90 Malignant neoplasm of unspecified part of unspecified bronchus or lung; R65.20 Severe sepsis without septic shock; E11.9 Type 2 diabetes mellitus without complications; I10 Essential (primary) hypertension; J45.909 Unspecified asthma, uncomplicated; Z20.822 Contact with and (suspected) exposure to COVID-19; H54.3 Unqualified visual loss, both eyes; R01.1 Cardiac murmur, unspecified; Z85.42 Personal history of malignant neoplasm of other parts of uterus; Z79.01 Long term (current) use of anticoagulants; Z88.1 Allergy status to other antibiotic agents; Z88.8 Allergy status to other drugs, medicaments and biological substances; B96.20 Unspecified Escherichia coli [E. coli] as the cause of diseases classified elsewhere
CPT/HCPCS: 36415; 71045; 80048; 80053; 81000; 82947; 83605; 84145; 85007; 85027; 85610; 85730; 86141; 87040; 87077; 87088; 87186; 87636

== ENCOUNTER → 2022-09-01 | Outpatient (CLI) | payer MEDICARE, OTHER ==
[~2022-09-01] MED LIST changes: +CALC-140 PO; +DIPH25TA65 PO
--- NOTE | 2022-09-01 16:20 | Diagnostic Imaging Report ---
Indication: Routine screening. Comparison is made with prior mammograms 07/11/2021 and 05/25/2020. 2-D and 3-D bilateral screening mammography was performed with CAD. Both breasts are heterogeneously dense, limiting the sensitivity of mammography. The parenchymal pattern is stable. No dominant mass or malignant-appearing microcalcifications are seen. Chest wall port hub is located in the right axilla. Left axilla is unremarkable. IMPRESSION: BI-RADS Category 1 No mammographic features suspicious for malignancy are identified. ACR BI-RADS Category 1: Negative. Result letter will be mailed to the patient. Note: At least 10% of breast cancer is not imaged by mammography. Dictated by: Dictated on workstation # [id number]
== END ==
LOC: CARD 09:01
PROVIDERS: ATTEND Family Medicine
DX: Z12.31 Encounter for screening mammogram for malignant neoplasm of breast (principal)
CPT/HCPCS: 77063; 77067; C8929; 93306

== ENCOUNTER 2023-04-28 08:57 | Emergency (ER) | payer MEDICARE, OTHER ==
[~2023-04-28] VITALS: Ht 154 cm; Wt 57.0 kg
[~2023-04-28 08:57] MED LIST changes: -GLIP5TAB13 PO; +GLIP5TAB23 PO
[2023-04-28] MEDS ORDERED: fentaNYL INJECTION 100 MCG/2 ML VIAL IVP STA (09:13)
[2023-04-28] MEDS ORDERED: fentaNYL INJECTION 100 MCG/2 ML VIAL IM STA (09:18)
--- NOTE | 2023-04-28 09:18 | ED Back Pain ---
General Chief Complaint: Back Problems Stated Complaint: RT LWR BACK PAIN Nursing Triage Note: PT REPORTS RIGHT LOWER BACK PAIN FOR 3 DAYS. DENIES ANY INJURIES TO HER BACK SHE JUST WOKE UP 3 DAYS AGO AND IT WAS HURTING. REPORTS SHE HAS BEEN TAKING IBUPROFEN FOR THE PAIN. Source of Information: Patient, Spouse History of Present Illness Date Seen by Provider: Apr 28, 2023 Time Seen by Provider: 09:00 Initial Comments 73-year-old female presenting with complaints of right lower back pain x 2 to 3 days. She denies any fall or injury. She also denies any heavy lifting or straining to cause the pain. She has been taking ibuprofen 600 mg every 4 hours to try and help with the pain. That helps some but does not last very long. She is already taking prednisone 30 mg a day. She is diabetic as well and does have a history of lung cancer and skin cancer as well as endometrial. She denies any pain or burning with urination, change in her bowels, black tarry stool, blood in her stool, blood in her urine. The pain does not radiate anywhere and stays over the right SI joint. It is very tender to touch. There is no rash or discoloration to the skin. She has also been trying alternating ice and heat without any significant improvement. pain does seem to be better if she is standing or walking. Location: Lumbar Spine (Right SI joint) Timing/Duration: 2-3 Days Severity: Severe Pain/Injury Location: Back (Right low back and SI joint.) Radiation: Other (No radiation) Method of Injury: Unknown Modifying Factors: Worse With Movement; Improves With Pain Medication (Ibuprofen helps some.) Associated Symptoms: No muscle spasms, No fever, No weakness, No numbness in legs/feet, No tingling in legs/feet, No sensory/motor loss; lower back pain; No loss of bladder control, No loss of bowel control Allergies and Home Medications Allergies Coded Allergies: polyethylene glycol (Unverified Allergy, Mild, HIVES, 10/25/21) ampicillin (Verified Allergy, Unknown, HIVES, 10/25/21) fluticasone (Verified Adverse Reaction, Mild, 10/25/21) salmeterol (Verified Adverse Reaction, Mild, HALLUCINATIONS, 10/25/21) Patient Home Medication List Home Medication List Reviewed: Yes Calcium Carbonate/Vitamin D3 (Calcium + Vitamin D Tablet) 600 Mg Calcium-5 Mcg (200 Unit) Tablet, 1 EACH PO DAILY, (Reported) Entered as Reported by: GUERO WETZEL on 02/17/22 1015 Cetirizine HCl (Zyrtec) 10 Mg Tablet, 10 MG PO DAILY, (Reported) Entered as Reported by: LORENZO ALAS on 09/15/21 0820 Diphenhydramine HCl (Benadryl Allergy) 25 Mg Tablet, 25-50 MG PO Q6H PRN for ALLERGY SYMPTOMS, (Reported) Entered as Reported by: GUERO WETZEL on 02/17/22 1015 Glipizide (Glipizide) 5 Mg Tablet, 5 MG PO BID PRN for HYPERGLYCEMIA, (Reported) Entered as Reported by: GUERO WETZEL on 12/14/21 1448 Lisinopril (Lisinopril) 5 Mg Tablet, 5 MG PO DAILY, (Reported) Entered as Reported by: GUERO WETZEL on 12/14/21 1448 Metformin HCl (Metformin HCl) 500 Mg Tablet, 500 MG PO DAILY, (Reported) Entered as Reported by: MARCIN LUNDBERG on 06/21/20 1207 Montelukast Sodium (Montelukast Sodium) 10 Mg Tablet, 10 MG PO DAILY, (Reported) Entered as Reported by: LETICIA LU on 10/25/21 1045 Sulfamethoxazole/Trimethoprim (Bactrim Ds Tablet) 1 Each Tablet, 1 EACH PO BID Prescribed by: DAVID ROSENTHAL on 02/17/22 1358 Tramadol HCl (Tramadol HCl) 50 Mg Tablet, 50 MG PO Q6H PRN for PAIN SEVERE Prescribed by: EDITH MANZANARES on 04/28/23 0957 Review of Systems Constitutional: No chills, No fever EENTM: no symptoms reported Respiratory: no symptoms reported Cardiovascular: no symptoms reported Gastrointestinal: no symptoms reported Genitourinary: no symptoms reported Musculoskeletal: see HPI Skin: No change in color Psychiatric/Neurological: Denies Numbness, Denies Paresthesia, Denies Weakness Past Bwwundx-Kqlorn-Yusyfq Hx Patient Social History Tobacco Use?: No Use of E-Cig and/or Vaping dev: No Substance use?: No Alcohol Use?: No Pt feels they are or have been: No Immunizations Up To Date Tetanus Booster (TDap): Unknown First/Initial COVID19 Vaccinat: 2020 Second COVID19 Vaccination Darci: 2020 Third COVID19 Vaccination Date: 2020 Seasonal Allergies Seasonal Allergies: Yes Past Medical History Surgery/Hospitalization HX: LUNG CANCER, DM 2, HTN COMPLETE HYSTERECTOMY, TONSIL, BABAR Surgeries: Yes (RT THUMB SX, several kidney stone sx ) Gallbladder, Hysterectomy, Tonsillectomy Respiratory: Yes (ventolin used for allergy induced asthma) Asthma Currently Using CPAP: No Currently Using BIPAP: No Cardiac: Yes Heart Murmur, Hypertension Neurological: No Reproductive Disorders: 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 Sexually Transmitted Disease: No Genitourinary: Yes Kidney Stones Gastrointestinal: No Musculoskeletal: Yes (right thumb) Fractures Endocrine: Yes Diabetes, Non-Insulin dep HEENT: No Loss of Vision: Bilateral Hearing Impairment: Denies Cancer: Yes (ENDOMETRIAL CA) Did You Recieve Any Treatments: Yes What Type of Treatment Did You: Chemotherapy, Radiation, Surgical Intervention Psychosocial: No Integumentary: No Blood Disorders: No Adverse Reaction/Blood Tranf: No (N/A) Family Medical History No Pertinent Family Hx Physical Exam Vital Signs Vital Signs - First Documented 04/28/23 09:03 Temp 36.0 Pulse 111 Resp 16 B/P (MAP) 134/63 (86) Pulse Ox 97 O2 Delivery Room Air Capillary Refill : Less Than 3 Seconds Height, Weight, BMI Height: 5'1.00" Weight: 132lbs. 0.0oz. 59.178285hb; 24.00 BMI Method: General Appearance: Chronically ill, Mild Distress (Patient is grimacing at times and appears to be uncomfortable sitting in the recliner) HEENT: PERRL/EOMI Gastrointestinal: No Pulsatile Mass, Non Tender, Soft Back: No CVA Tenderness, No Vertebral Tenderness, Other (Right SI joint pain with palpation. There is no discoloration, induration, fluctuance.) Extremity: Normal Capillary Refill, No Pedal Edema Neurologic/Psychiatric: Alert, Oriented x3, No Motor/Sensory Deficits Skin: Normal Color, Warm/Dry; No Ecchymosis, No Erythema, No Rash Progress/Results/Core Measures Results/Orders My Orders Orders - EDITH MANZANARES MD Ct Lumbar Spine Wo (04/28/23 09:15) Fentanyl Injection (Fentanyl Injection (04/28/23 09:18) Vital Signs/I&O 04/28/23 04/28/23 09:03 09:59 Temp 36.0 36.0 Pulse 111 111 Resp 16 16 B/P (MAP) 134/63 (86) 134/63 Pulse Ox 97 97 O2 Delivery Room Air Room Air Blood Pressure Mean: 86 Progress Progress Note #1: Progress Note Differential diagnosis includes sciatica, lumbar muscle strain, pinched nerve, compression fracture, metastatic cancer to the bone. Patient states that she cannot tolerate hydrocodone or oxycodone because it makes her itch too much. From review of her prior electronic medical record. She has had fentanyl as well as morphine in the past and seemed to tolerate that as there were no additional orders around that time for Benadryl or an antihistamine. Will try a dose of fentanyl 50 mcg IM to see if that might help with her pain. Order a CT of the lumbar spine to help evaluate for possible bony process causing the pain. Can try ordering tramadol as a pain medicine to see if she could get additional relief with that while taking the prednisone she already has prescribed and she could continue to take ibuprofen and add in acetaminophen if needed. Have her check back with her primary provider during the week if not having any improvement in her pain. She could also try SalonPas Lidocaine patches to see if that will help give her some pain relief as it is so tender to palpation over the right SI joint. Progress Note #2: Time: 09:[address] lumbar spine without IV contrast was read out as chronic arthritic changes no acute lytic lesions. She does also have left-sided hydronephrosis with hydroureter seen partially imaged with the CT. Will review with the patient and discuss option of tramadol as a pain medicine for home. She could again continue with ibuprofen as well as acetaminophen and try and help with the pain. Consider the lidocaine numbing patches. Check back with primary care provider if not having improvement over the next 2 or 3 days. When reviewing the results with the patient she did state that her left kidney has not worked for a while and she is aware of the changes. Diagnostic Imaging Diagonstic Imaging: CT Plain Films/CT/US/NM/MRI: other (lumbar spine) Comments NAME: RANDAL CASE MED REC#: [id number] PT STATUS: REG ER : 1950 PHYSICIAN: EDITH MANZANARES MD ADMIT DATE: 04/28/23/ER FS Signed Date of Exam:04/28/23 CT LUMBAR SPINE WO PROCEDURE: CT lumbar spine without contrast. TECHNIQUE: Multiple contiguous axial images were obtained through the lumbar spine without the use of intravenous contrast. Sagittal and coronal reformations were then performed. Auto Exposure Controls were utilized during the CT exam to meet ALARA standards for radiation dose reduction. INDICATION: Back pain for 3 days. COMPARISON: FINDINGS: Chronic bilateral pars defects of L5 with 7 mm anterolisthesis of L5 on S1. No acute fracture of lumbar spine. The vertebral body heights are maintained. Mild multilevel disc height loss. No lytic or sclerotic bone lesions. No high-grade spinal canal stenosis. Moderate bilateral neural foraminal narrowing at L5-S1. Included views of the soft tissues demonstrate partially imaged left hydroureteronephrosis with associated atrophy of the left kidney. The right kidney demonstrates a small cyst. Aortic atherosclerosis. IMPRESSION: No acute fracture of the lumbar spine. Chronic bilateral pars defects of L5 with 7 mm anterolisthesis of L5 on S1. Included views of the soft tissues demonstrate partially imaged left hydroureteronephrosis with associated atrophy of the left kidney. Dictated by: Dictated on workstation # [id number] Dict: 04/28/23941 Trans: 04/28/23944 [facility] [place] [id number] Interpreted by: VALARIE WAHL DO Electronically signed by: VALARIE WAHL DO 04/28/2345 Reviewed: Reviewed by Me Departure Impression Primary Impression: Pain of right sacroiliac joint Additional Impressions: Acute low back pain with right-sided sciatica Qualified Codes: M54.41 - Lumbago with sciatica, right side Hydronephrosis of left kidney Hydroureter on left Disposition: 01 HOME, SELF-CARE Condition: Stable Departure-Patient Inst. Decision time for Depature: 09:54 Referrals: LETICIA VAZQUEZ MD (PCP/Family) Primary Care Physician Patient Instructions: Sacroiliac Joint Pain ED, Sciatica ED, Opioids for Short- Term Treatment of Pain ED, Low Back Pain ED, Hydronephrosis, Adult (DC) Add. Discharge Instructions: Try taking the tramadol for pain. You may take the ibuprofen as well as acetaminophen along with this to try and help with pain. Consider trying [id number] lidocaine numbing patch such as Salonpas to try and help with the pain as well. If not having any improvement over the next 2 or 3 days check back with your primary care provider as they may need to order an MRI or have pain management see you to try and help with your pain. All discharge instructions reviewed with patient and/or family. Voiced u nderstanding. Scripts Tramadol HCl (Tramadol HCl) 50 Mg Tablet 50 MG PO Q6H PRN for PAIN SEVERE for 5 Days, #20 TAB 0 Refills Prov: EDITH MANZANARES MD 04/28/23 Images Full Body/Extremities Full 1 - Severe, Tenderness (Severe pain with palpation over the right SI joint) EDITH MANZANARES MD Apr 28, 2023 09:18
--- NOTE | 2023-04-28 09:46 | Diagnostic Imaging Report ---
PROCEDURE: CT lumbar spine without contrast. TECHNIQUE: Multiple contiguous axial images were obtained through the lumbar spine without the use of intravenous contrast. Sagittal and coronal reformations were then performed. Auto Exposure Controls were utilized during the CT exam to meet ALARA standards for radiation dose reduction. INDICATION: Back pain for 3 days. COMPARISON: FINDINGS: Chronic bilateral pars defects of L5 with 7 mm anterolisthesis of L5 on S1. No acute fracture of lumbar spine. The vertebral body heights are maintained. Mild multilevel disc height loss. No lytic or sclerotic bone lesions. No high-grade spinal canal stenosis. Moderate bilateral neural foraminal narrowing at L5-S1. Included views of the soft tissues demonstrate partially imaged left hydroureteronephrosis with associated atrophy of the left kidney. The right kidney demonstrates a small cyst. Aortic atherosclerosis. IMPRESSION: No acute fracture of the lumbar spine. Chronic bilateral pars defects of L5 with 7 mm anterolisthesis of L5 on S1. Included views of the soft tissues demonstrate partially imaged left hydroureteronephrosis with associated atrophy of the left kidney. Dictated by: Dictated on workstation # [id number]
[2023-04-28] MEDS ORDERED: TRM50T PO (09:56)
[2023-04-28 09:59] VITALS: BP 134/63
== END 2023-04-28 10:00 | disposition home or self-care (01) ==
LOC: EDUNIT# 08:57 → ER FS 08:59
DX: N13.30 Unspecified hydronephrosis (principal); M54.41 Lumbago with sciatica, right side
CPT/HCPCS: 72131